=== PATIENT | male | born 1960 | race Caucasian/White ===

== ENCOUNTER 2016-08-23 10:14 | Emergency (ER) | payer OTHER, MEDICAID ==
[2016-08-23 10:17] VITALS: BP 129/88; PULSE 66; RESP 16; TEMP 98.6; O2SAT 92
[2016-08-23] MEDS ORDERED: CLINDAMYCIN 150 MG CAP PO ONE (11:11)
--- NOTE | 2016-08-23 11:15 | EDPHY ---
H & P Stated Complaint: R lower tooth infection Time Seen by Provider: 08/23/16 11:03 HPI/ROS: CHIEF COMPLAINT: Dental pain HISTORY OF PRESENT ILLNESS: Patient is a 56-year-old man with a history of HIV who comes to the emergency department complaining of right lower dental pain. He had his tooth extracted by dental 8 several months ago. He is worried that it is becoming infected at the site. He states that he can taste pus. He has pain in the area. No other trauma. He was seen at urgent care last week and started on unknown antibiotic for bronchitis. He has not had a fever. REVIEW OF SYSTEMS: Constitutional: denies: chills, fever, recent illness, recent injury EENTM: See HPI Respiratory: denies: cough, shortness of breath Cardiac: denies: chest pain, irregular heart rate, lightheadedness, palpitations Gastrointestinal/Abdominal: denies: abdominal pain, diarrhea, nausea, vomiting, blood streaked stools Genitourinary: denies: dysuria, frequency, hematuria, pain Musculoskeletal: denies: joint pain, muscle pain Skin: denies: lesions, rash, jaundice, bruising Neurological: denies: headache, numbness, paresthesia, tingling, dizziness, weakness Hematologic/Lymphatic: denies: blood clots, easy bleeding, easy bruising Immunologic/allergic: denies: HIV/AIDS, transplant EXAM: GENERAL: Well-appearing, well-nourished and in no acute distress. HEAD: Atraumatic, normocephalic. EYES: Pupils equal round and reactive to light, extraocular movements intact, sclera anicteric, conjunctiva are normal. ENT: Poor dentition, right lower tooth extracted with small amount of erythema in the area, no visible swelling or discharge. NECK: Normal range of motion, supple without lymphadenopathy or JVD. LUNGS: Breath sounds clear to auscultation bilaterally and equal. No wheezes rales or rhonchi. HEART: Regular rate and rhythm without murmurs, rubs or gallops. ABDOMEN: Soft, nontender, normoactive bowel sounds. No guarding, no rebound. No masses appreciated. BACK: No CVA tenderness, no spinal tenderness, step-offs or deformities EXTREMITIES: Normal range of motion, no pitting or edema. No clubbing or cyanosis. NEUROLOGICAL: Cranial nerves II through XII grossly intact. Normal speech, normal gait. 5/5 strength, normal movement in all extremities, normal sensation PSYCH: Normal mood, normal affect. SKIN: Warm, dry, normal turgor, no visible rashes or lesions. Source: Patient Exam Limitations: No limitations - Personal History Current Tetanus/Diphtheria Vaccine: Yes Current Tetanus Diphtheria and Acellular Pertussis (TDAP): Yes Tetanus Vaccine Date: WITHIN 10 YRS - Medical/Surgical History Hx Asthma: No Hx Chronic Respiratory Disease: No Hx Diabetes: No Hx Cardiac Disease: Yes Hx Renal Disease: No Hx Cirrhosis: No Hx Alcoholism: Yes Hx HIV/AIDS: Yes Hx Splenectomy or Spleen Trauma: No Other PMH: Chronic abdominal pain, HIV, Hep c+, htn, former alcoholic. psh- yaneth - Family History Significant Family History: No pertinent family hx - Social History Smoking Status: Former smoker Alcohol Use: Sober Drug Use: None Constitutional: Initial Vital Signs Temperature (C) 37.0 C 08/23/16 10:16 Heart Rate 66 08/23/16 10:16 Respiratory Rate 16 08/23/16 10:16 Blood Pressure 129/88 H 08/23/16 10:16 O2 Sat (%) 92 08/23/16 10:16 O2 Delivery Mode Room Air Allergies/Adverse Reactions: No Known Allergies Allergy (Verified 08/20/16 13:09) Home Medications: Medication Instructions Recorded Citalopram Hydrobromide [Celexa] 40 mg PO DAILY 05/27/14 Emtricitabine/Tenofovir [Truvada 1 tab PO DAILY8 05/27/14 200MG/300MG (*)] Mirtazapine [Remeron] 45 mg PO HS 05/27/14 Famotidine [Pepcid] 40 mg PO DAILY #10 tablet 06/05/14 Darunavir Ethanolate [Prezista] 800 mg PO DAILY 01/06/16 Ritonavir [Norvir] 100 mg PO DAILY 01/06/16 Folic Acid [Folic Acid 1 MG (*)] 1 mg PO DAILY #0 tab 01/08/16 Thiamine HCl [Vitamin B-1] 100 mg PO DAILY #0 tab 01/08/16 clonazePAM [klonoPIN (*)] 1 mg PO TID #9 tab 01/08/16 Albuterol Hfa Anes Only [Proair 2 puffs IH Q4 PRN #1 mdi 08/20/16 Hfa Icu (*)] Doxycycline Hyclate 100 mg PO BID #14 tab 08/20/16 Doxycycline Hyclate [Vibramycin 100 mg PO BID #14 cap 08/20/16 100 MG (*)] Guaifenesin/Codeine Phosphate 5 - 10 ml PO Q6 PRN #120 ml 08/20/16 [Guaifenesin-Codeine Liquid] Clindamycin HCl [Clindamycin] 300 mg PO TID #30 cap 08/23/16 Medical Decision Making ED Course/Re-evaluation: The patient has dental pain and history of HIV. He has follow-up scheduled with dental [facility] tomorrow. I will start him on clindamycin. He is not sure of the antibiotic were he was taking for his bronchitis. He is happy with this plan and declines further workup or testing. Differential Diagnosis: Partial list of the Differential diagnosis considered include but were not limited to; dental infection, abscess, dental caries and although unlikely based on the history and physical exam, I also considered fracture parotid duct stone, sepsis, endocarditis. I discussed these differential diagnoses and the plan with the patient as well as the usual and expected course. The patient understands that the diagnosis is provisional and that in medicine we are not always correct and that further workup is often warranted. Usual and customary warnings were given. All of the patient's questions were answered. The patient was instructed to return to the emergency department should the symptoms at all worsen or return, otherwise to followup with the physician as we discussed. - Data Points Medications Given: Discontinued Medications Clindamycin (Clindamycin) 150 mg PO EDNOW ONE PRN Reason: Protocol Stop: 08/23/16 11:12 Last Admin: 08/23/16 11:16 Dose: 150 mg Departure - Departure Disposition: Home, Routine, Self-Care Clinical Impression: Dental infection Condition: Fair Instructions: Dental Abscess (ED) Referrals: NONE *PRIMARY CARE P,. [Primary Care Provider] - As per Instructions [facility] [Outside] - As per Instructions Prescriptions: Clindamycin HCl [Clindamycin] 300 mg PO TID #30 cap
== END 2016-08-23 11:20 | disposition home or self-care (01) ==
DX: K04.7 Periapical abscess without sinus (principal); I10 Essential (primary) hypertension; B20 Human immunodeficiency virus [HIV] disease; Z87.891 Personal history of nicotine dependence

== ENCOUNTER 2016-11-27 07:03 | Emergency (ER) | payer OTHER, MEDICAID ==
[2016-11-27 07:23] VITALS: BP 132/105; PULSE 105; RESP 18; TEMP 98.6; O2SAT 95
[2016-11-27] MEDS ORDERED: NS 1,000 ML IV ONE (07:32)
[2016-11-27] MEDS ORDERED: HALOPERIDOL LACT 5 MG/ML INJ IVP ONE (07:35)
[2016-11-27] MEDS ORDERED: HALOPERIDOL LACT 5 MG/ML INJ ONE (07:38)
--- NOTE | 2016-11-27 07:42 | UCPHY ---
H & P Patient Type: Established Chief Complaint Nursing Narrative: abd pain and nausea for 8 days Time Seen by Provider: 11/27/16 07:14 HPI/ROS: CHIEF COMPLAINT: Abdominal pain History by patient HISTORY OF PRESENT ILLNESS: 56-year-old man with a history of psychiatric disorder, alcohol abuse and HIV with a CD4 count in the thousands presents complaining of diffuse abdominal pain x8 days. This has been associated with nausea and vomiting and diarrhea although he says the diarrhea has resolved and he has not had a bowel movement several days. He has had subjective fever at home. The patient pain is diffuse and not localized. He has a history of prior cholecystectomy. He is not on regular pain medications. He says this is a chronic recurrent problem for him and that he has been told by his nurse that he can go to the ER for any more and he has been told by people at the ER at other hospitals that he should not have any more CAT scans because of the radiation risk. He was last seen for this at [facility] week ago. He denies any urinary symptoms. He drinks alcohol regularly and he says I think a lot but has not had a drink in 5 days. He says he has never been an alcohol withdrawal or had an alcohol related seizure. He is currently denying anxiety, tactile disturbances, and says he has a chronic tremor. He denies a prior history of alcohol withdrawal. He is on disability due to psychiatric and cognitive impairment. REVIEW OF SYSTEMS: As in HPI, and all other systems reviewed and are negative - Personal History Tetanus Vaccine Date: WITHIN 10 YRS - Medical/Surgical History Hx Asthma: No Hx Chronic Respiratory Disease: No Hx Diabetes: No Hx Cardiac Disease: Yes Hx Renal Disease: No Hx Cirrhosis: No Hx Alcoholism: Yes Hx HIV/AIDS: Yes Hx Splenectomy or Spleen Trauma: No Other PMH: Chronic abdominal pain, HIV, Hep c+, htn, former alcoholic. psh- yaneth - Family History Significant Family History: No pertinent family hx - Social History Smoking Status: Former smoker Alcohol Use: Heavy Drug Use: Marijuana - Physical Exam Exam: General Appearance: Alert, disheveled, uncomfortable. Eyes: Pupils equal and round no pallor,mnildly injected. ENT, Mouth: Mucous membranes moist. Respiratory: Normal, effort, There are no retractions, lungs are clear to auscultation. Cardiovascular: Regular rate and rhythm. Gastrointestinal: Abdomen is soft with diffuse mild tenderness, no masses, bowel sounds normal. Neurological: Awake, alert and oriented x 3, no pronator drift, normal gait, no pronator drift, positive tremor Skin: Warm and dry, scattered red plaques and excoriations. Musculoskeletal: Neck is supple nontender. Extremities are symmetrical, full range of motion. Psychiatric: Patient has normal affect, there is no agitation. Constitutional: Initial Vital Signs Temperature (C) 37 C 11/27/16 07:20 Heart Rate 105 H 11/27/16 07:20 Respiratory Rate 18 11/27/16 07:20 Blood Pressure 132/105 H 11/27/16 07:20 O2 Sat (%) 95 11/27/16 07:20 O2 Delivery Mode Room Air Allergies/Adverse Reactions: No Known Allergies Allergy (Verified 08/20/16 13:09) Home Medications: Medication Instructions Recorded Citalopram Hydrobromide [Celexa] 40 mg PO DAILY 05/27/14 Emtricitabine/Tenofovir [Truvada 1 tab PO DAILY8 05/27/14 200MG/300MG (*)] Mirtazapine [Remeron] 45 mg PO HS 05/27/14 Famotidine [Pepcid] 40 mg PO DAILY #10 tablet 06/05/14 Darunavir Ethanolate [Prezista] 800 mg PO DAILY 01/06/16 Ritonavir [Norvir] 100 mg PO DAILY 01/06/16 Folic Acid [Folic Acid 1 MG (*)] 1 mg PO DAILY #0 tab 01/08/16 Thiamine HCl [Vitamin B-1] 100 mg PO DAILY #0 tab 01/08/16 clonazePAM [klonoPIN (*)] 1 mg PO TID #9 tab 01/08/16 Albuterol Hfa Anes Only [Proair 2 puffs IH Q4 PRN #1 mdi 08/20/16 Hfa Icu (*)] Medical Decision Making ED Course/Re-evaluation: Patient with longstanding history of chronic abdominal pain presents with his typical symptoms. Initially he was slightly tachycardic but his exam was otherwise benign. I reviewed the patient's prior ER visits to other hospitals in [place] and has been a longstanding chronic problem for him with similar visits in for which she has a pain management contract at [facility] that requests no narcotics. His CD4 count is in the thousands and thus , opportunistic infections are unlikely. Patient was given IV fluids and IV Haldol with significant improvement in his symptoms and was stating he feels hungry and would like to go home any breakfast. Labs are notable for an elevated white blood cell count which on review of records has been chronically high. Is potassium was slightly low consistent with his history of vomiting and diarrhea. His heart rate improved after fluids and because he was feeling improved and this is a chronic condition for him I did not think any further intervention or workup was necessary. Patient was discharged home in stable and improved condition. - Data Points Laboratory Results: Laboratory Results 11/27/16 07:40 11/27/16 07:40 11/27/16 11/27/16 07:40 07:40 WBC 13.99 10^3/uL H 10^3/uL (3.80-9.50) RBC 4.39 10^6/uL L 10^6/uL (4.40-6.38) Hgb 15.8 g/dL g/dL (13.7-17.5) Hct 42.7 % % (40.0-51.0) MCV 97.3 fL fL (81.5-99.8) MCH 36.0 pg H pg (27.9-34.1) MCHC 37.0 g/dL H g/dL (32.4-36.7) RDW 12.1 % % (11.5-15.2) Plt Count 250 10^3/uL 10^3/uL (150-400) MPV 9.3 fL fL (8.7-11.7) Neut % (Auto) 70.0 % % (39.3-74.2) Lymph % (Auto) 20.4 % % (15.0-45.0) Lamar % (Auto) 8.4 % % (4.5-13.0) Eos % (Auto) 0.4 % L % (0.6-7.6) Baso % (Auto) 0.4 % % (0.3-1.7) Nucleat RBC Rel Count 0.0 % % (0.0-0.2) Absolute Neuts (auto) 9.80 10^3/uL H 10^3/uL (1.70-6.50) Absolute Lymphs (auto) 2.85 10^3/uL 10^3/uL (1.00-3.00) Absolute Monos (auto) 1.17 10^3/uL H 10^3/uL (0.30-0.80) Absolute Eos (auto) 0.05 10^3/uL 10^3/uL (0.03-0.40) Absolute Basos (auto) 0.06 10^3/uL 10^3/uL (0.02-0.10) Absolute Nucleated RBC 0.00 10^3/uL 10^3/uL (0-0.01) Immature Gran % 0.4 % % (0.0-1.1) Immature Gran # 0.06 10^3/uL 10^3/uL (0.00-0.10) Sodium 140 mEq/L mEq/L (134-144) Potassium 3.4 mEq/L L mEq/L (3.5-5.2) Chloride 106 mEq/L mEq/L (97-110) Carbon Dioxide 21 mEq/l L mEq/l (22-31) Anion Gap 13 mEq/L mEq/L (8-16) BUN 20 mg/dL mg/dL (7-23) Creatinine 0.9 mg/dL mg/dL (0.7-1.3) Estimated GFR > 60 Glucose 106 mg/dL H mg/dL (70-100) Calcium 9.5 mg/dL mg/dL (8.5-10.4) Total Bilirubin 1.0 mg/dL mg/dL (0.1-1.4) Conjugated Bilirubin 0.4 mg/dL mg/dL (0.0-0.5) Unconjugated Bilirubin 0.6 mg/dL mg/dL (0.0-1.1) AST 39 IU/L IU/L (17-59) ALT 62 IU/L IU/L (21-72) Alkaline Phosphatase 79 IU/L IU/L (38-126) Total Protein 7.2 g/dL g/dL (6.3-8.2) Albumin 4.0 g/dL g/dL (3.5-5.0) Lipase 46.0 IU/L IU/L (23-300) Medications Given: Discontinued Medications Haloperidol Lactate (Haldol Injection) 2.5 mg IVP EDNOW ONE Stop: 11/27/16 07:36 Last Admin: 11/27/16 07:44 Dose: 2.5 mg Sodium Chloride (Ns) 1,000 mls @ 0 mls/hr IV ONCE ONE PRN Reason: Wide Open Stop: 11/27/16 07:33 Last Admin: 11/27/16 07:44 Dose: 1,000 mls Departure - Departure Disposition: Home, Routine, Self-Care Clinical Impression: Chronic abdominal pain Condition: Fair Instructions: Chronic Abdominal Pain (ED) Referrals: Etienne Yang MD [Primary Care Provider] - As per Instructions - PQRS PQRS Measurement: N/A
[2016-11-27 07:50] LABS: % IMMATURE GRANULYOCYTES 0.4 % (0.0-1.1); ABSOLUTE IMMATURE GRANULOCYTES 0.06 10^3/uL (0.00-0.10); ADD DIFF? NO; ADD MORPH? NO; ADD SCAN? NO; ATYPICAL LYMPHOCYTE FLAG 0 (0-99); FRAGMENT RBC FLAG 0 (0-99); HEMATOCRIT 42.7 % (40.0-51.0); HEMOGLOBIN 15.8 g/dL (13.7-17.5); LEFT SHIFT FLG 0 (0-99); LIPEMIA HEMOLYSIS FLAG 90 (0-99); MEAN CELL VOLUME 97.3 fL (81.5-99.8); MEAN PLATELET VOLUME 9.3 fL (8.7-11.7); PLATELET CLUMPS FLAG 0 (0-99); PLATELET COUNT 250 10^3/uL (150-400); RED BLOOD CELL COUNT 4.39 10^6/uL (4.40-6.38); RED CELL DISTRIBUTION WIDTH 12.1 % (11.5-15.2)
[2016-11-27 08:10] LABS: ALANINE AMINOTRANSFERASE 62 IU/L (21-72); ALKALINE PHOSPHATASE 79 IU/L (38-126); ANION GAP 13 mEq/L (8-16); ASPARTATE AMINOTRANSFERASE 39 IU/L (17-59); BILIRUBIN-CONJUGATED 0.4 mg/dL (0.0-0.5); BILIRUBIN-UNCONJUGATED 0.6 mg/dL (0.0-1.1); CALCIUM 9.5 mg/dL (8.5-10.4); CARBON DIOXIDE 21 mEq/l (22-31); CHLORIDE 106 mEq/L (97-110); CREATININE 0.9 mg/dL (0.7-1.3); GLOMERULAR FILTRATION RATE > 60; GLUCOSE 106 mg/dL (70-100); POTASSIUM 3.4 mEq/L (3.5-5.2); SODIUM 140 mEq/L (134-144); TOTAL PROTEIN 7.2 g/dL (6.3-8.2)
== END 2016-11-27 08:21 | disposition home or self-care (01) ==
LOC: CED 07:03
DX: R10.9 Unspecified abdominal pain (principal); R11.2 Nausea with vomiting, unspecified; F99 Mental disorder, not otherwise specified; B20 Human immunodeficiency virus [HIV] disease; B19.20 Unspecified viral hepatitis C without hepatic coma; F12.90 Cannabis use, unspecified, uncomplicated; F10.21 Alcohol dependence, in remission; Z87.891 Personal history of nicotine dependence
CPT/HCPCS: 96361; 96374; G0463; 80048-PO; 80076-PO; 83690-PO; 85025-PO; 99215-PO

== ENCOUNTER 2017-04-07 08:03 | Emergency (ER) | payer OTHER, MEDICAID ==
[2017-04-07] MEDS ORDERED: NS 1,000 ML IV ONE ×2 (08:20→08:56)
[2017-04-07] MEDS ORDERED: ONDANSETRON 4 MG/2 ML VIAL IVP ONE (08:20)
--- NOTE | 2017-04-07 08:20 | EDPHY ---
H & P Time Seen by Provider: 04/07/17 08:14 HPI/ROS: Abdominal Pain Chief complaint. Abdominal pain HPI. 57-year-old male presents emergency department with 3 day history of generalized abdominal pain. He describes as burning in generalized. Some radiation to the back. He has had nausea and vomiting and decreased oral intake for the past 4 days. Subjective fever. No change with movement to his abdomen. He denies urinary symptoms. Similar symptoms previously. He has been drinking alcohol on as recently as last night. No previous abdominal surgery. Some cough but denies chest discomfort or trouble breathing ROS Constitutional. Subjective fever Eyes. no problems with vision ENT. no sore throat, no nasal drainage Cardiovascular. no chest pain Respiratory. no shortness of breath, no cough Abdominal. Abdominal pain with nausea vomiting . no problems urinating MS. no calf pain/swelling, no neck/back pain, no joint pain Skin. no rash Lymph. no swollen glands Neuro. no headache, no dizziness, no difficulty walking or with speech Past Medical/Surgical History: Past medical history significant for psychiatric disorder, alcoholism, HIV, hepatitis-C, hypertension Last CD4 count 1157 per patient Social History: Single, nonsmoker, recent alcohol Smoking Status: Former smoker Physical Exam: General Appearance: Alert well-developed male moderate distress vital signs significant for heart rate 115 and blood pressure 154/129 Eyes: Pupils equal and round no pallor or injection. ENT, Mouth: Mucous membranes are moist. Respiratory: There are no retractions, lungs are clear to auscultation. Cardiovascular: Regular rate and rhythm. Gastrointestinal: Abdomen is soft and diffusely tender. Normal bowel sounds. No masses Neurological: Awake and alert, sensory and motor exams grossly normal. Skin: Warm and dry, no rashes. Musculoskeletal: Neck is supple nontender. Extremities symmetrical, full range of motion. Psychiatric: Patient is oriented X 3, there is no agitation. Constitutional: Initial Vital Signs Temperature (C) 37.4 C 04/07/17 08:12 Heart Rate 115 H 04/07/17 08:12 Respiratory Rate 20 04/07/17 08:12 Blood Pressure 154/129 H 04/07/17 08:12 O2 Sat (%) 94 04/07/17 08:12 O2 Delivery Mode Room Air O2 (L/minute) 2 Allergies/Adverse Reactions: No Known Allergies Allergy (Verified 04/07/17 08:12) Home Medications: Medication Instructions Recorded Citalopram Hydrobromide [Celexa] 40 mg PO DAILY 05/27/14 Emtricitabine/Tenofovir [Truvada 1 tab PO DAILY8 05/27/14 200MG/300MG (*)] Mirtazapine [Remeron] 45 mg PO HS 05/27/14 Famotidine [Pepcid] 40 mg PO DAILY #10 tablet 06/05/14 Darunavir Ethanolate [Prezista] 800 mg PO DAILY 01/06/16 Ritonavir [Norvir] 100 mg PO DAILY 01/06/16 Folic Acid [Folic Acid 1 MG (*)] 1 mg PO DAILY #0 tab 01/08/16 Thiamine HCl [Vitamin B-1] 100 mg PO DAILY #0 tab 01/08/16 clonazePAM [klonoPIN (*)] 1 mg PO TID #9 tab 01/08/16 Albuterol Hfa Anes Only [Proair 2 puffs IH Q4 PRN #1 mdi 08/20/16 Hfa Icu (*)] Medical Decision Making Procedures: IV normal saline. Zofran initially for nausea and vomiting. Ativan 1 mg IV. Fentanyl 100 mcg IV ED Course/Re-evaluation: Re-evaluation 8:50 a.m.. Patient is better but continues to complain of pain. He will be given some IV fentanyl Re-evaluation at 9:40 a.m.. Patient stable. He tells me he has no abdominal pain. He is drinking juice and eating crackers. Patient and I discussed laboratory evaluation, treatment plan including criteria for return and importance of follow-up and further evaluation. He expresses understanding and agreement Re-evaluation again at 9:54 a.m.. Patient has no symptoms. He feels well to go home Differential Diagnosis: Symptoms are likely due to alcohol consumption and not eating much food over the last several days. He has mild dehydration. I considered pancreatitis, peptic ulcer disease, gastritis. - Data Points Laboratory Results: Laboratory Results 04/07/17 08:28 04/07/17 08:28 04/07/17 04/07/17 08:28 08:28 WBC 19.92 10^3/uL H 10^3/uL (3.80-9.50) RBC 4.52 10^6/uL 10^6/uL (4.40-6.38) Hgb 16.1 g/dL g/dL (13.7-17.5) Hct 44.8 % % (40.0-51.0) MCV 99.1 fL D fL (81.5-99.8) MCH 35.6 pg H pg (27.9-34.1) MCHC 35.9 g/dL g/dL (32.4-36.7) RDW 12.7 % % (11.5-15.2) Plt Count 249 10^3/uL 10^3/uL (150-400) MPV 9.1 fL fL (8.7-11.7) Neut % (Auto) 74.3 % H % (39.3-74.2) Lymph % (Auto) 17.2 % % (15.0-45.0) [place] % (Auto) 7.2 % % (4.5-13.0) Eos % (Auto) 0.2 % L % (0.6-7.6) Baso % (Auto) 0.4 % % (0.3-1.7) Nucleat RBC Rel Count 0.0 % % (0.0-0.2) Absolute Neuts (auto) 14.82 10^3/uL H 10^3/uL (1.70-6.50) Absolute Lymphs (auto) 3.42 10^3/uL H 10^3/uL (1.00-3.00) Absolute Monos (auto) 1.44 10^3/uL H 10^3/uL (0.30-0.80) Absolute Eos (auto) 0.03 10^3/uL 10^3/uL (0.03-0.40) Absolute Basos (auto) 0.07 10^3/uL 10^3/uL (0.02-0.10) Absolute Nucleated RBC 0.00 10^3/uL 10^3/uL (0-0.01) Immature Gran % 0.7 % % (0.0-1.1) Immature Gran # 0.14 10^3/uL H 10^3/uL (0.00-0.10) Sodium 143 mEq/L mEq/L (134-144) Potassium 4.3 mEq/L mEq/L (3.5-5.2) Chloride 108 mEq/L mEq/L (97-110) Carbon Dioxide 19 mEq/l L mEq/l (22-31) Anion Gap 16 mEq/L mEq/L (8-16) BUN 29 mg/dL H mg/dL (7-23) Creatinine 1.4 mg/dL H mg/dL (0.7-1.3) Estimated GFR 52 Glucose 129 mg/dL H mg/dL (70-100) Calcium 9.5 mg/dL mg/dL (8.5-10.4) Lipase 48 IU/L IU/L (23-300) Medications Given: Discontinued Medications Fentanyl (Sublimaze) 100 mcg IVP EDNOW ONE Stop: 04/07/17 08:57 Last Admin: 04/07/17 09:05 Dose: 100 mcg Sodium Chloride (Ns) 1,000 mls @ 0 mls/hr IV EDNOW ONE; Wide Open PRN Reason: Protocol Stop: 04/07/17 08:21 Last Admin: 04/07/17 08:30 Dose: 1,000 mls Sodium Chloride (Ns) 1,000 mls @ 0 mls/hr IV EDNOW ONE; Wide Open PRN Reason: Protocol Stop: 04/07/17 08:57 Last Admin: 04/07/17 09:10 Dose: 1,000 mls Lorazepam (Ativan Injection) 1 mg IVP EDNOW ONE Stop: 04/07/17 08:36 Last Admin: 04/07/17 08:42 Dose: 1 mg Ondansetron HCl (Zofran) 4 mg IVP EDNOW ONE Stop: 04/07/17 08:21 Last Admin: 04/07/17 08:30 Dose: 4 mg Departure - Departure Disposition: Home, Routine, Self-Care Clinical Impression: Abdominal pain Qualifiers: Abdominal location: generalized Qualified Code(s): R10.84 - Generalized abdominal pain Condition: Good Instructions: Abdominal Pain (ED) Additional Instructions: Frequent, small sips fluids well nauseated. Gradual diet advancement. Avoid further alcohol consumption. Return for worsening pain, fever, vomiting. Recheck in 1 day if not continuing to improve Referrals: Mari Pritchett MD [Primary Care Provider] - 1 day, if not improved
[2017-04-07 08:31] LABS: % IMMATURE GRANULYOCYTES 0.7 % (0.0-1.1); ABSOLUTE IMMATURE GRANULOCYTES 0.14 10^3/uL (0.00-0.10); ADD DIFF? NO; ADD MORPH? NO; ADD SCAN? NO; ATYPICAL LYMPHOCYTE FLAG 0 (0-99); FRAGMENT RBC FLAG 0 (0-99); HEMATOCRIT 44.8 % (40.0-51.0); HEMOGLOBIN 16.1 g/dL (13.7-17.5); LEFT SHIFT FLG 0 (0-99); LIPEMIA HEMOLYSIS FLAG 90 (0-99); MEAN CELL HEMOGLOBIN 35.6 pg (27.9-34.1); MEAN CELL HEMOGLOBIN CONCENTR. 35.9 g/dL (32.4-36.7); MEAN CELL VOLUME 99.1 fL (81.5-99.8); MEAN PLATELET VOLUME 9.1 fL (8.7-11.7); PLATELET CLUMPS FLAG 0 (0-99); PLATELET COUNT 249 10^3/uL (150-400); RED BLOOD CELL COUNT 4.52 10^6/uL (4.40-6.38); RED CELL DISTRIBUTION WIDTH 12.7 % (11.5-15.2)
[2017-04-07] MEDS ORDERED: LORazepam 2 MG/ML INJ IVP ONE (08:35)
[2017-04-07 08:53] LABS: CALCIUM 9.5 mg/dL (8.5-10.4); CREATININE 1.4 mg/dL (0.7-1.3); POTASSIUM 4.3 mEq/L (3.5-5.2)
[2017-04-07] MEDS ORDERED: fentaNYL 100 MCG/2 ML INJ IVP ONE (08:56)
[2017-04-07 10:08] VITALS: BP 110/67; PULSE 79; RESP 18; TEMP 98.6; O2SAT 94
== END 2017-04-07 10:08 | disposition home or self-care (01) ==
LOC: CED 08:03
DX: R10.84 Generalized abdominal pain (principal); B20 Human immunodeficiency virus [HIV] disease; I10 Essential (primary) hypertension; E86.9 Volume depletion, unspecified; Z87.891 Personal history of nicotine dependence
CPT/HCPCS: 96361; 96374; 96375; 99284; J2060; J2405; J3010; 80048-PO; 83690-PO; 85025-PO

== ENCOUNTER 2017-04-26 09:38 | Emergency (ER) | payer OTHER, MEDICAID ==
[2017-04-26 10:01] VITALS: RESP 18
[2017-04-26] MEDS ORDERED: ONDANSETRON 4 MG/2 ML VIAL IVP ONE (10:01)
[2017-04-26] MEDS ORDERED: NS 1,000 ML IV ONE (10:01)
[2017-04-26] MEDS ORDERED: fentaNYL 100 MCG/2 ML INJ IVP ONE (10:02)
[2017-04-26 10:12] LABS: % IMMATURE GRANULYOCYTES 0.7 % (0.0-1.1); ABSOLUTE IMMATURE GRANULOCYTES 0.13 10^3/uL (0.00-0.10); ADD DIFF? NO; ADD MORPH? NO; ADD SCAN? NO; ATYPICAL LYMPHOCYTE FLAG 0 (0-99); FRAGMENT RBC FLAG 0 (0-99); HEMATOCRIT 45.6 % (40.0-51.0); HEMOGLOBIN 16.3 g/dL (13.7-17.5); LEFT SHIFT FLG 0 (0-99); LIPEMIA HEMOLYSIS FLAG 90 (0-99); MEAN CELL HEMOGLOBIN 35.6 pg (27.9-34.1); MEAN CELL HEMOGLOBIN CONCENTR. 35.7 g/dL (32.4-36.7); MEAN CELL VOLUME 99.6 fL (81.5-99.8); MEAN PLATELET VOLUME 9.3 fL (8.7-11.7); PLATELET CLUMPS FLAG 10 (0-99); PLATELET COUNT 352 10^3/uL (150-400); RED BLOOD CELL COUNT 4.58 10^6/uL (4.40-6.38); RED CELL DISTRIBUTION WIDTH 12.8 % (11.5-15.2)
--- NOTE | 2017-04-26 10:14 | EDPHY ---
H & P Time Seen by Provider: 04/26/17 09:58 HPI/ROS: CHIEF COMPLAINT: Abdominal pain, vomiting HISTORY OF PRESENT ILLNESS: 57-year-old male with alcoholism and HIV positive presents with recurrent abdominal pain and vomiting. Onset of generalized abdominal pain yesterday, associated with multiple episodes of vomiting and subjective fever. The abdominal pain is constant, without alleviating or aggravating factors. History of multiple prior similar episodes. He was last seen on 04/07/2017 for similar symptoms, given Zofran and fentanyl with complete relief in symptoms. He quit drinking alcohol after that visit. He was asymptomatic until yesterday. Last CD4 count was approximately 1200; no prior opportunistic infections. REVIEW OF SYSTEMS: Constitutional: no chills Eyes: No visual changes ENT: No sore throat Respiratory: No cough, no shortness of breath Cardiac: No chest pain Genitourinary: No hematuria, no dysuria Musculoskeletal: No leg pain or swelling Skin: No rash Neurological: No headache, no numbness, no weakness Psychiatric: depression Past Medical/Surgical History: Alcoholism HIV positive Hepatitis-C Cholecystectomy Social History: Smokes marijuana 3 times daily Denies recent alcohol Smoking Status: Former smoker Physical Exam: General Appearance: Alert, appears uncomfortable Eyes: Pupils equal and round, no conjunctival pallor or injection ENT, Mouth: Mucous membranes moist Neck: Normal inspection Respiratory: Lungs are clear to auscultation Cardiovascular: Regular rate and rhythm Gastrointestinal: Abdomen is soft, diffuse tenderness, does not appear in pain with palpation, normal bowel sounds Neurological: A&O, nonfocal, normal gait Skin: Warm and dry, no rash Extremities: Nontender, no pedal edema Psychiatric: Mood and affect normal Constitutional: Initial Vital Signs Temperature (C) 37.2 C 04/26/17 09:58 Heart Rate 78 04/26/17 09:58 Respiratory Rate 18 04/26/17 09:58 Blood Pressure 150/99 H 04/26/17 09:58 O2 Sat (%) 94 04/26/17 09:58 O2 Delivery Mode Room Air Allergies/Adverse Reactions: No Known Allergies Allergy (Verified 04/07/17 08:12) Home Medications: Medication Instructions Recorded Citalopram Hydrobromide [Celexa] 40 mg PO DAILY 05/27/14 Emtricitabine/Tenofovir [Truvada 1 tab PO DAILY8 05/27/14 200MG/300MG (*)] Mirtazapine [Remeron] 45 mg PO HS 05/27/14 Famotidine [Pepcid] 40 mg PO DAILY #10 tablet 06/05/14 Darunavir Ethanolate [Prezista] 800 mg PO DAILY 01/06/16 Ritonavir [Norvir] 100 mg PO DAILY 01/06/16 Folic Acid [Folic Acid 1 MG (*)] 1 mg PO DAILY #0 tab 01/08/16 Thiamine HCl [Vitamin B-1] 100 mg PO DAILY #0 tab 01/08/16 clonazePAM [klonoPIN (*)] 1 mg PO TID #9 tab 01/08/16 Albuterol Hfa Anes Only [Proair 2 puffs IH Q4 PRN #1 mdi 08/20/16 Hfa Icu (*)] Ondansetron Odt [Zofran Odt 4 mg 4 mg PO Q4 PRN #6 tab 04/26/17 (*)] Medical Decision Making ED Course/Re-evaluation: This patient presents with recurrent abdominal pain and vomiting. Old medical records were reviewed; last admission for similar symptoms was in November 2015. The patient declines CT scan and states that his symptoms usually resolve with IV fluids, Zofran and pain medicine. 11:00 a.m.-the patient feels much better. Nausea and pain have resolved. Abdomen is soft and nontender. He is a daily marijuana user and understands that his recurrent abdominal pain and vomiting may be secondary to cyclic vomiting syndrome. Leukocytosis was noted and discussed with the patient. I reviewed his past white blood cell counts and he usually has leukocytosis. 11:30am--continues to feel much better; no abd pain or nausea. Tolerated oral fluids well. Abd soft, NT. Wants to go home. Abd pain precautions given. Differential Diagnosis: Differential diagnosis includes though it is not limited to appendicitis, cholecystitis, diverticulitis, pyelonephritis, bowel perforation, small bowel obstruction. - Data Points Laboratory Results: Laboratory Results 04/26/17 10:04 04/26/17 10:04 04/26/17 04/26/17 04/26/17 10:04 10:04 10:04 WBC 19.85 10^3/uL H 10^3/uL (3.80-9.50) RBC 4.58 10^6/uL 10^6/uL (4.40-6.38) Hgb 16.3 g/dL g/dL (13.7-17.5) Hct 45.6 % % (40.0-51.0) MCV 99.6 fL fL (81.5-99.8) MCH 35.6 pg H pg (27.9-34.1) MCHC 35.7 g/dL g/dL (32.4-36.7) RDW 12.8 % % (11.5-15.2) Plt Count 352 10^3/uL 10^3/uL (150-400) MPV 9.3 fL fL (8.7-11.7) Neut % (Auto) 75.0 % H % (39.3-74.2) Lymph % (Auto) 17.9 % % (15.0-45.0) [place] % (Auto) 5.8 % % (4.5-13.0) Eos % (Auto) 0.2 % L % (0.6-7.6) Baso % (Auto) 0.4 % % (0.3-1.7) Nucleat RBC Rel Count 0.0 % % (0.0-0.2) Absolute Neuts (auto) 14.90 10^3/uL H 10^3/uL (1.70-6.50) Absolute Lymphs (auto) 3.55 10^3/uL H 10^3/uL (1.00-3.00) Absolute Monos (auto) 1.16 10^3/uL H 10^3/uL (0.30-0.80) Absolute Eos (auto) 0.03 10^3/uL 10^3/uL (0.03-0.40) Absolute Basos (auto) 0.08 10^3/uL 10^3/uL (0.02-0.10) Absolute Nucleated RBC 0.00 10^3/uL 10^3/uL (0-0.01) Immature Gran % 0.7 % % (0.0-1.1) Immature Gran # 0.13 10^3/uL H 10^3/uL (0.00-0.10) Sodium 142 mEq/L mEq/L (134-144) Potassium 4.4 mEq/L mEq/L (3.5-5.2) Chloride 107 mEq/L mEq/L (97-110) Carbon Dioxide 21 mEq/l L mEq/l (22-31) Anion Gap 14 mEq/L mEq/L (8-16) BUN 24 mg/dL H mg/dL (7-23) Creatinine 1.3 mg/dL mg/dL (0.7-1.3) Estimated GFR 57 Glucose 165 mg/dL H mg/dL (70-100) Calcium 10.0 mg/dL mg/dL (8.5-10.4) Total Bilirubin 0.9 mg/dL mg/dL (0.1-1.4) Conjugated Bilirubin 0.5 mg/dL mg/dL (0.0-0.5) Unconjugated Bilirubin 0.4 mg/dL mg/dL (0.0-1.1) AST 28 IU/L IU/L (17-59) ALT 46 IU/L IU/L (21-72) Alkaline Phosphatase 81 IU/L IU/L (38-126) Total Protein 8.1 g/dL g/dL (6.3-8.2) Albumin 4.8 g/dL g/dL (3.5-5.0) Lipase 69 IU/L IU/L (23-300) Ethyl Alcohol Pending Medications Given: Discontinued Medications Fentanyl (Sublimaze) 100 mcg IVP EDNOW ONE Stop: 04/26/17 10:03 Last Admin: 04/26/17 10:11 Dose: 100 mcg Sodium Chloride (Ns) 1,000 mls @ 0 mls/hr IV ONCE ONE PRN Reason: Wide Open Stop: 04/26/17 10:02 Last Admin: 04/26/17 10:07 Dose: 1,000 mls Ondansetron HCl (Zofran) 4 mg IVP EDNOW ONE Stop: 04/26/17 10:02 Last Admin: 04/26/17 10:07 Dose: 4 mg Departure - Departure Disposition: Home, Routine, Self-Care Clinical Impression: Abdominal pain Qualifiers: Abdominal location: generalized Qualified Code(s): R10.84 - Generalized abdominal pain Instructions: Acute Nausea and Vomiting (ED), Abdominal Pain (ED) Additional Instructions: Clear fluids for 24 hours. Return for worsening symptoms or any concerns. Referrals: Etienne Yang MD [Primary Care Provider] - 1-2 days without fail Prescriptions: Ondansetron Odt [Zofran Odt 4 mg (*)] 4 mg PO Q4 PRN #6 tab PRN Reason: Nausea
[2017-04-26 10:28] LABS: ALBUMIN 4.8 g/dL (3.5-5.0); BILIRUBIN,TOTAL 0.9 mg/dL (0.1-1.4); BILIRUBIN-CONJUGATED 0.5 mg/dL (0.0-0.5); BILIRUBIN-UNCONJUGATED 0.4 mg/dL (0.0-1.1); CREATININE 1.3 mg/dL (0.7-1.3); POTASSIUM 4.4 mEq/L (3.5-5.2); TOTAL PROTEIN 8.1 g/dL (6.3-8.2)
[2017-04-26 10:50] VITALS: TEMP 98
[2017-04-26 11:53] VITALS: BP 137/62; PULSE 95; O2SAT 91
[2017-04-26 12:08] LABS: ETHANOL SERUM < 10 mg/dL (0-10)
== END 2017-04-26 11:52 | disposition home or self-care (01) ==
LOC: CED 09:38
DX: R10.84 Generalized abdominal pain (principal); Z87.891 Personal history of nicotine dependence; Z90.49 Acquired absence of other specified parts of digestive tract
CPT/HCPCS: 96361; 96374; 99284; J3010; 80048-PO; 80076-PO; 83690-PO; 85025-PO; G0480

== ENCOUNTER 2017-08-06 07:16 | Observation (INO) | payer OTHER, MEDICAID ==
[2017-08-06] MEDS ORDERED: HYDROmorphONE/DILAUDID 1 MG/ML INJ IVP ONE (07:40)
[2017-08-06] MEDS ORDERED: NS 1,000 ML IV ONE ×2 (07:40→08:22)
[2017-08-06] MEDS ORDERED: ONDANSETRON 4 MG/2 ML VIAL IVP ONE (07:41)
--- NOTE | 2017-08-06 07:50 | EDPHY ---
H & P Stated Complaint: abd. pain x 3 days, with rectal bleeding Time Seen by Provider: 08/06/17 07:25 HPI/ROS: CHIEF COMPLAINT: Abdominal pain, rectal bleeding HISTORY OF PRESENT ILLNESS: This is a 57-year-old male with a history of alcoholism, hepatitis-C, HIV, hypertension who is been seen in the emergency department on a number of occasions with abdominal pain, and vomiting, thought possibly to be related to cannabis use. He presents today reporting 3 days of abdominal pain with vomiting. He noted blood mixed in his stool and blood on the toilet paper this morning. No prior history of rectal bleeding associated with his abdominal pain and vomiting. Denies any rectal pain, hemorrhoids, or prior episodes of bleeding. Patient denies a history of reflux or GERD. Patient also reports about a month of achy chest discomfort. Cannot identify any specific exacerbating or relieving factors. Denies palpitations, lightheadedness, dizziness, fainting. He does have a history of hypertension but no history of diabetes, coronary artery disease, family history of coronary artery disease, and is not a cigarette smoker. Patient reports burning with urination. No hematuria. Last drink 3 days ago. No fever, chills, shortness of breath, palpitations, urinary complaints, headache, lightheadedness. REVIEW OF SYSTEMS: Aside from elements discussed in the HPI, a comprehensive 10-point review of systems was reviewed and is negative. PAST MEDICAL HISTORY: Hypertension, HIV positive, no AIDS defining illnesses per the patient's report, hepatitis-C, alcoholism. SOCIAL HISTORY: Heavy cannabis use, nonsmoker, alcoholic. VITAL SIGNS Reviewed by me. Mildly tachypneic. O2 sats intermittently noted to be 88 %. Hypertensive. GENERAL: Slightly disheveled, uncomfortable, writhing on the bed complaining of abdominal pain. No respiratory distress HEENT: Atraumatic. Eyes: No icterus, no injection. Mouth: Dry mucous membranes. No erythema or lesions. Neck: supple with no adenopathy. LUNGS: Diffuse wheezes throughout, no rhonchi or rales. CARDIAC: Distant heart sounds, regular, no murmur auscultated. ABDOMEN: Soft, diffuse tenderness. No guarding or rebound. RECTAL: External hemorrhoid present, not thrombosed, not tender, not bleeding. Yellow loose stool on the glove. No visible blood or melena. BACK: No CVA tenderness. EXTREMITIES: No trauma. No edema. Range of motion is normal throughout. NEURO: Alert and oriented, grossly nonfocal. SKIN: Warm and dry, psoriatic rash on arms, legs, chest, abdomen. PSYCHIATRIC: Normal mentation, no agitation. - Personal History Tetanus Vaccine Date: WITHIN 10 YRS - Medical/Surgical History Hx Asthma: No Hx Chronic Respiratory Disease: No Hx Diabetes: No Hx Cardiac Disease: Yes Hx Renal Disease: No Hx Cirrhosis: No Hx Alcoholism: Yes Hx HIV/AIDS: Yes Hx Splenectomy or Spleen Trauma: No Other PMH: Chronic abdominal pain, HIV, Hep c+, htn, former alcoholic. psh- yaneth - Social History Smoking Status: Former smoker Constitutional: Initial Vital Signs Temperature (C) 37.2 C 08/06/17 07:22 Heart Rate 78 08/06/17 07:22 Respiratory Rate 22 H 08/06/17 07:22 Blood Pressure 164/124 H 08/06/17 07:22 O2 Sat (%) 94 08/06/17 07:22 O2 Delivery Mode Room Air O2 (L/minute) 3 Allergies/Adverse Reactions: No Known Allergies Allergy (Verified 08/06/17 07:20) Home Medications: Medication Instructions Recorded Citalopram Hydrobromide [Celexa] 40 mg PO DAILY 05/27/14 Emtricitabine/Tenofovir [Truvada 1 tab PO DAILY8 05/27/14 200MG/300MG (*)] Mirtazapine [Remeron] 45 mg PO HS 05/27/14 Famotidine [Pepcid] 40 mg PO DAILY #10 tablet 06/05/14 Darunavir Ethanolate [Prezista] 800 mg PO DAILY 01/06/16 Ritonavir [Norvir] 100 mg PO DAILY 01/06/16 Folic Acid [Folic Acid 1 MG (*)] 1 mg PO DAILY #0 tab 01/08/16 Thiamine HCl [Vitamin B-1] 100 mg PO DAILY #0 tab 01/08/16 clonazePAM [klonoPIN (*)] 1 mg PO TID #9 tab 01/08/16 Albuterol Hfa Anes Only [Proair 2 puffs IH Q4 PRN #1 mdi 08/20/16 Hfa Icu (*)] Ondansetron Odt [Zofran Odt 4 mg 4 mg PO Q4 PRN #6 tab 04/26/17 (*)] Atenolol [Tenormin 100 mg (*)] 100 mg PO DAILY 08/06/17 Atorvastatin Calcium [Lipitor 20 20 mg PO DAILY 08/06/17 mg (*)] Lisinopril [Zestril 10 mg (*)] 10 mg PO DAILY 08/06/17 Naproxen [Naprosyn] 500 mg PO BID 08/06/17 Pantoprazole Sodium [Protonix 40mg 40 mg PO DAILY 08/06/17 (*)] Medical Decision Making - Diagnostics EKG Interpretation: 12-LEAD EKG: Please see the full report in [facility]. My interpretation: Sinus rhythm, baseline artifact. Imaging Results: Imaging Impressions Chest X-Ray 08/06/17 07:40 Impression: No acute findings in the chest. ED Course/Re-evaluation: Patient had IV placed and receives normal saline as well as Dilaudid and Zofran. He received an albuterol nebulizer for his wheezing. Following the neb treatment the patient was noted to become quite hypoxic. 84% on room air. On re-examination he remains persistently wheezy. DuoNeb was administered. Patient was placed on O2. O2 sats are 88% on 2 L. Patient was increased to 3 L. Chest x-ray demonstrates no infiltrate. Patient's initial blood pressure was quite elevated. At that point he was in significant discomfort. After receiving pain meds, fluids, anti emetics patient is noted to have a blood pressure between 80 and 90 systolic. 2nd L of NS fluid was hung. Further treatment in the emergency department included albuterol nebulizer as well as the 2nd L of normal saline. Patient continues to be hypoxic on room air is requiring 3 L by nasal cannula to keep saturations greater than 90%. CT scan the abdomen pelvis was obtained and is unremarkable. Patient's blood pressures intermittently the 90 systolic. Lactic acid was drawn and is pending at this time. Of note the patient has not had fevers or chills by history. Patient's course was discussed with the hospitalist service. Patient will be admitted to Dr. Bob Cortez as accepting physician. Lactic acid is 0.7. Differential Diagnosis: After obtaining the patient's history and performing an examination, differential diagnosis for the patient's primary complaint of abdominal pain or rectal bleeding was considered included but was not limited to gastritis, varices, upper GI bleeding, lower GI bleeding, colitis, gastroenteritis, pancreatitis, rectal bleeding. Differential diagnosis for the patient's chest pain hypoxemia was considered including but not limited to pulmonary infectious processes, influenza, viral syndrome, bronchitis, pulmonary emboli, pulmonary edema, congestive heart failure, and cardiac causes. Consult/Admit Bed Type: Dr. Sanjay Rojas, [facility] - Data Points Laboratory Results: Laboratory Results 08/06/17 07:43 08/06/17 07:43 08/06/17 08/06/17 08/06/17 08:42 07:43 07:43 WBC RBC Hgb Hct MCV MCH MCHC RDW Plt Count MPV Neut % (Auto) Lymph % (Auto) [place] % (Auto) Eos % (Auto) Baso % (Auto) Nucleat RBC Rel Count Absolute Neuts (auto) Absolute Lymphs (auto) Absolute Monos (auto) Absolute Eos (auto) Absolute Basos (auto) Absolute Nucleated RBC Immature Gran % Immature Gran # Sodium 147 mEq/L H mEq/L (134-144) Potassium 4.1 mEq/L mEq/L (3.5-5.2) Chloride 110 mEq/L mEq/L (97-110) Carbon Dioxide 21 mEq/l L mEq/l (22-31) Anion Gap 16 mEq/L mEq/L (8-16) BUN 28 mg/dL H mg/dL (7-23) Creatinine 1.2 mg/dL mg/dL (0.7-1.3) Estimated GFR > 60 Glucose 131 mg/dL H mg/dL (70-100) Calcium 9.6 mg/dL mg/dL (8.5-10.4) Total Bilirubin 1.1 mg/dL mg/dL (0.1-1.4) Conjugated Bilirubin 0.4 mg/dL mg/dL (0.0-0.5) Unconjugated Bilirubin 0.7 mg/dL mg/dL (0.0-1.1) AST 32 IU/L IU/L (17-59) ALT 45 IU/L IU/L (21-72) Alkaline Phosphatase 67 IU/L IU/L (38-126) Lactate Dehydrogenase Troponin I < 0.012 ng/mL ng/mL (0.000-0.034) Total Protein 7.2 g/dL g/dL (6.3-8.2) Albumin 4.1 g/dL g/dL (3.5-5.0) Lipase 59 IU/L IU/L (23-300) Stool Occult Bld Scrn H. pylori IgG Antibody NEGATIVE (NEG) Influenza A,B Rapid NEGATIVE FOR FLU (NEGATIVE) 08/06/17 08/06/17 08/06/17 07:43 07:42 07:30 WBC 14.17 10^3/uL H 10^3/uL (3.80-9.50) RBC 4.34 10^6/uL L 10^6/uL (4.40-6.38) Hgb 15.6 g/dL g/dL (13.7-17.5) Hct 43.8 % % (40.0-51.0) MCV 100.9 fL H fL (81.5-99.8) MCH 35.9 pg H pg (27.9-34.1) MCHC 35.6 g/dL g/dL (32.4-36.7) RDW 12.2 % % (11.5-15.2) Plt Count 253 10^3/uL 10^3/uL (150-400) MPV 8.9 fL fL (8.7-11.7) Neut % (Auto) 65.6 % % (39.3-74.2) Lymph % (Auto) 24.6 % % (15.0-45.0) [place]rill % (Auto) 8.5 % % (4.5-13.0) Eos % (Auto) 0.4 % L % (0.6-7.6) Baso % (Auto) 0.5 % % (0.3-1.7) Nucleat RBC Rel Count 0.0 % % (0.0-0.2) Absolute Neuts (auto) 9.30 10^3/uL H 10^3/uL (1.70-6.50) Absolute Lymphs (auto) 3.48 10^3/uL H 10^3/uL (1.00-3.00) Absolute Monos (auto) 1.21 10^3/uL H 10^3/uL (0.30-0.80) Absolute Eos (auto) 0.05 10^3/uL 10^3/uL (0.03-0.40) Absolute Basos (auto) 0.07 10^3/uL 10^3/uL (0.02-0.10) Absolute Nucleated RBC 0.00 10^3/uL 10^3/uL (0-0.01) Immature Gran % 0.4 % % (0.0-1.1) Immature Gran # 0.06 10^3/uL 10^3/uL (0.00-0.10) Sodium Potassium Chloride Carbon Dioxide Anion Gap BUN Creatinine Estimated GFR Glucose Calcium Total Bilirubin Conjugated Bilirubin Unconjugated Bilirubin AST ALT Alkaline Phosphatase Lactate Dehydrogenase 552 IU/L IU/L (313-618) Troponin I Total Protein Albumin Lipase Stool Occult Bld Scrn POSITIVE H (NEGATIVE) H. pylori IgG Antibody Influenza A,B Rapid Medications Given: Discontinued Medications Albuterol (Proventil Neb) 3 ml IH EDNOW ONE Stop: 08/06/17 07:56 Last Admin: 08/06/17 08:21 Dose: 3 ml Hydromorphone HCl (Dilaudid) 1 mg IVP EDNOW ONE Stop: 08/06/17 07:41 Last Admin: 08/06/17 07:52 Dose: 1 mg Sodium Chloride (Ns) 1,000 mls @ 0 mls/hr IV ONCE ONE; Wide Open PRN Reason: Protocol Stop: 08/06/17 07:41 Last Admin: 08/06/17 07:54 Dose: 1,000 mls Sodium Chloride (Ns) 1,000 mls @ 0 mls/hr IV ONCE ONE; TKO PRN Reason: Protocol Stop: 08/06/17 08:23 Last Admin: 08/06/17 08:25 Dose: 1,000 mls Ondansetron HCl (Zofran) 4 mg IVP EDNOW ONE Stop: 08/06/17 07:42 Last Admin: 08/06/17 07:52 Dose: 4 mg Departure - Departure Disposition: [facility] Acute Clinical Impression: Nausea, vomiting, and diarrhea, Hypoxia Abdominal pain Qualifiers: Abdominal location: generalized Qualified Code(s): R10.84 - Generalized abdominal pain Gastrointestinal bleeding Qualifiers: GI bleed type/associated pathology: unspecified gastrointestinal hemorrhage type Qualified Code(s): K92.2 - Gastrointestinal hemorrhage, unspecified
[2017-08-06 07:53] LABS: % IMMATURE GRANULYOCYTES 0.4 % (0.0-1.1); ABSOLUTE IMMATURE GRANULOCYTES 0.06 10^3/uL (0.00-0.10); ADD DIFF? NO; ADD MORPH? NO; ADD SCAN? NO; ATYPICAL LYMPHOCYTE FLAG 0 (0-99); FRAGMENT RBC FLAG 0 (0-99); HEMATOCRIT 43.8 % (40.0-51.0); HEMOGLOBIN 15.6 g/dL (13.7-17.5); LEFT SHIFT FLG 0 (0-99); LIPEMIA HEMOLYSIS FLAG 90 (0-99); MEAN CELL HEMOGLOBIN 35.9 pg (27.9-34.1); MEAN CELL HEMOGLOBIN CONCENTR. 35.6 g/dL (32.4-36.7); MEAN CELL VOLUME 100.9 fL (81.5-99.8); MEAN PLATELET VOLUME 8.9 fL (8.7-11.7); PLATELET CLUMPS FLAG 0 (0-99); PLATELET COUNT 253 10^3/uL (150-400); RED BLOOD CELL COUNT 4.34 10^6/uL (4.40-6.38); RED CELL DISTRIBUTION WIDTH 12.2 % (11.5-15.2)
[2017-08-06] MEDS ORDERED: ALBUTEROL 3 ML DEYVIAL IH ONE (07:55)
--- NOTE | 2017-08-06 08:08 | CPEKG ---
Heart Rate: 152 RR Interval: 395 QRSD Interval: 82 QT Interval: 344 QTC Interval: 547 QRS Syl[place]: 77 T Wave Syl[place]: 266 EKG Severity - ABNORMAL ECG - EKG Impression: sinus rhythm, artifact Electronically Signed By: Lino Baker 08-Aug-2017 21:36:54
[2017-08-06 08:10] LABS: ALANINE AMINOTRANSFERASE 45 IU/L (21-72); ALBUMIN 4.1 g/dL (3.5-5.0); ALKALINE PHOSPHATASE 67 IU/L (38-126); ANION GAP 16 mEq/L (8-16); ASPARTATE AMINOTRANSFERASE 32 IU/L (17-59); BILIRUBIN,TOTAL 1.1 mg/dL (0.1-1.4); BILIRUBIN-CONJUGATED 0.4 mg/dL (0.0-0.5); BILIRUBIN-UNCONJUGATED 0.7 mg/dL (0.0-1.1); CALCIUM 9.6 mg/dL (8.5-10.4); CARBON DIOXIDE 21 mEq/l (22-31); CHLORIDE 110 mEq/L (97-110); CREATININE 1.2 mg/dL (0.7-1.3); GLOMERULAR FILTRATION RATE > 60; GLUCOSE 131 mg/dL (70-100); POTASSIUM 4.1 mEq/L (3.5-5.2); SODIUM 147 mEq/L (134-144); TOTAL PROTEIN 7.2 g/dL (6.3-8.2)
[2017-08-06 08:21] LABS: TROPONIN I < 0.012 ng/mL (0.000-0.034)
[2017-08-06] MEDS ORDERED: IOPAMIDOL (ISOVUE-300) 100 ML BTL ONE (09:10)
[2017-08-06 11:11] VITALS: RESP 16
[2017-08-06] MEDS ORDERED: ALBUTEROL IH PRN (12:27)
[2017-08-06] MEDS ORDERED: ONDANSETRON DISINTEGRATING 4 MG TAB PO PRN (12:29)
[2017-08-06] MEDS ORDERED: ACETAMINOPHEN 325 MG TAB PO PRN (12:29)
[2017-08-06] MEDS ORDERED: ONDANSETRON 4 MG/2 ML VIAL IVP PRN (12:29)
[2017-08-06] MEDS ORDERED: ATENOLOL 100 MG TAB PO SCH (12:30)
[2017-08-06] MEDS ORDERED: RITONAVIR 100 MG PO SCH (12:30)
[2017-08-06] MEDS ORDERED: ALBUTEROL 200 PUFFS/18 GM MDI IH PRN (12:36)
--- NOTE | 2017-08-06 12:57 | GHP ---
[f rep st] HISTORY AND PHYSICAL DATE OF ADMISSION: 08/07/2017 HISTORY OF PRESENT ILLNESS: The patient is a pleasant 57-year-old gentleman with a history of HIV an d hepatitis C, as well as what sounds like fairly heavy daily alcohol use, presents to the ER with ab dominal pain. He went to [facility] in [place]. He has a number of visits, but I think what scar up today's visit was development of some bright red blood in the toilet. It sounds like he has a lot of liquid stool and has recently had more firm stoo l because he has eaten some meals. A lot of time he gets most of his calories from alcohol, drinking upwards of 12 beers a day. He has had no vomiting, no hematemesis, no coffee-ground emesis, no melena. He does not have known v arices. No fever or chills. No confusion. REVIEW OF SYSTEMS: Complete 10-point review of systems conducted, negative, except as noted in the H PI. PAST MEDICAL HISTORY: 1. HIV, on HAART, followed at [facility]. 2. Hepatitis C. Apparently, he has been treated in the past. 3. Anxiety. 4. Heavy alcohol use. 5. Chronic abdominal pain. 6. Hypertension. SOCIAL HISTORY: Uses a fair amount of marijuana. No tobacco or alcohol. FAMILY HISTORY: Reviewed and unremarkable. PHYSICAL EXAMINATION: PRESENTING VITALS: Temp 37.2, blood pressure 111/74, pulse 58, breathing 18 t imes a minute, 93% on 2 L. GENERAL: No acute distress. HEENT: Sclerae anicteric. Oropharynx misha r. Mucous membranes moist. NECK: Supple, without lymphadenopathy or JVD. LUNGS: Clear to auscult ation bilaterally. HEART: S1, S2. ABDOMEN: Soft, nontender, nondistended. LOWER EXTREMITIES: No edema. Calves are nontender. SKIN: Without rash. NEUROLOGIC: Nonfocal. RECTAL: Guaiac positiv e in the emergency department. LABORATORY DATA: Sodium 147, potassium 4.1, chloride 110, bicarb 21, BUN 28, creatinine 1.2, glucose 131. LFTs normal. Lipase normal. Troponin less than 0.012. Stool guaiac positive. Venous lactat e 0.7, white count 14, hematocrit 44. Platelets are 253,000. Influenza and H pylori negative. Abdom inal CT images reviewed, interpreted by me, shows liver hypodensities and mild diverticulosis without diverticulitis, otherwise unremarkable. Chest x-ray interpreted by me shows no acute cardiopulmonar y disease. EKG interpreted by me: It is sinus at 75 with normal axis and intervals and no ST or T-w ave changes. It is not atrial fibrillation. He is not tachycardic. ASSESSMENT/PLAN: This is a 57-year-old gentleman with a history of human immunodeficiency virus and hepatitis C, who presents with abdominal pain, some bright red blood per rectum. 1. Bright red blood per rectum. I suspect that this is in fact hemorrhoidal. Will trend his hemato crit and follow. He is already on a PPI. I do not suspect an upper source. 2. Hyponatremia. This is mild. I suspect it is secondary to poor p.o. intake. 3. Sinus tachycardia. The patient was tachycardic on presentation, but he is actually bradycardic h ere. EKG is read as atrial fibrillation, which it is definitely not. We will follow. 4. Human immunodeficiency virus. Continue his medications. 5. Hepatitis C. This has apparently been treated. 6. Alcoholism. We will start him on scheduled low-dose Librium today. I think he is at risk for wi thdrawal. He is not on it now. DISPOSITION STATUS: Observation. /[id number]/MODL
[2017-08-06] MEDS: PANTOPRAZOLE SODIUM 40 MG TAB PO SCH (13:06)
[2017-08-06] MEDS: ATENOLOL 50 MG TAB PO SCH (13:09)
[2017-08-06] MEDS: RITONAVIR 100 MG TAB PO SCH (13:10)
[2017-08-06] MEDS: EMTRICITABINE/TENOFOVIR 200MG/300MG TAB PO SCH (13:10)
[2017-08-06] MEDS: DARUNAVIR ETHANOLATE 800 MG TAB PO SCH (13:10)
--- NOTE | 2017-08-06 13:15 | ASMTCMCOM ---
CM Note CM Note Notes: Pt admitted w/ bright red blood per rectum, hyponatremia and sinus tachycardia; per MD notes, blood likely hemorrhoidal. Pt w/ hx of HIV, Hep C and ETOH abuse. Pt lives independently and is routinely followed by the [facility] for HAART. Anticipate pt will likely discharge home w/ no needs when medically stable. CM will cont to follow. Date Signed: 08/06/2017 01:14 PM Electronically Signed By:Jayshree Heath RN
[2017-08-06] MEDS: clonazePAM 1 MG TAB PO SCH ×2 (15:24→20:55)
[2017-08-06 16:42] LABS: HEMATOCRIT 39.3 % (40.0-51.0); HEMOGLOBIN 13.7 g/dL (13.7-17.5)
[2017-08-06] MEDS ORDERED: NON-FORMULARY NEW DRUG (Mirtazapine [Remeron] 45 MG) PO SCH (21:00)
[2017-08-06] MEDS ORDERED: MIRTAZAPINE 15 MG TAB PO SCH (21:00)
[2017-08-06] MEDS ORDERED: LISINOPRIL 10 MG TAB PO SCH (21:00)
[2017-08-07 04:51] LABS: HEMOGLOBIN 13.4 g/dL (13.7-17.5)
[2017-08-07 05:01] LABS: ANION GAP 8 mEq/L (8-16); CALCIUM 8.4 mg/dL (8.5-10.4); CARBON DIOXIDE 26 mEq/l (22-31); CHLORIDE 110 mEq/L (97-110); CREATININE 0.8 mg/dL (0.7-1.3); GLOMERULAR FILTRATION RATE > 60; GLUCOSE 103 mg/dL (70-100); POTASSIUM 4.2 mEq/L (3.5-5.2); SODIUM 144 mEq/L (134-144)
[2017-08-07 07:20] VITALS: BP 108/74; TEMP 97.9; O2SAT 88
--- NOTE | 2017-08-07 08:45 | HOSPPROG ---
Hospitalist Progress Note Assessment/Plan: complex 57 yo M w abd pain home today see dc summary Objective: Vital Signs Temp Pulse Resp BP Pulse Ox 36.6 C 59 L 16 108/74 88 L 08/07/17 07:18 08/07/17 07:18 08/07/17 07:18 08/07/17 07:18 08/07/17 07:18 Laboratory Results 08/07/17 04:30 08/07/17 04:30 08/06/17 08/07/17 08/08/17 05:59 05:59 05:59 Intake Total 2500 Output Total 275 Balance 2225 - Physical Exam Constitutional: no apparent distress Eyes: PERRL, anicteric sclera Ears, Nose, Mouth, Throat: moist mucous membranes, hearing normal Cardiovascular: regular rate and rhythym, no murmur, rub, or gallop, systolic murmur Respiratory: no respiratory distress, no rales or rhonchi Gastrointestinal: normoactive bowel sounds, soft, non-tender abdomen Genitourinary: no bladder fullness, No holder in urethra Skin: warm, normal color Musculoskeletal: full muscle strength Neurologic: AAOx3, sensation intact bilaterally Psychiatric: interacting appropriately ICD10 Worksheet Patient Problems: Problems Problem Status Onset Abdominal pain Acute Gastrointestinal bleeding Acute Hypoxia Acute Nausea, vomiting, and diarrhea Acute Alcohol withdrawal Acute
[2017-08-07] MEDS ORDERED: CITALOPRAM 20 MG TAB PO SCH (09:00)
[2017-08-07] MEDS ORDERED: NON-FORMULARY NEW DRUG (Citalopram Hydrobromide [Celexa] 40 MG) PO SCH (09:00)
[2017-08-07] MEDS ORDERED: ATORVASTATIN CALCIUM 20 MG TAB PO SCH (09:00)
[2017-08-07] MEDS: ATENOLOL 50 MG TAB PO SCH (09:18)
[2017-08-07] MEDS: PANTOPRAZOLE SODIUM 40 MG TAB PO SCH (09:19)
[2017-08-07] MEDS: clonazePAM 1 MG TAB PO SCH (09:19)
[2017-08-07] MEDS: EMTRICITABINE/TENOFOVIR 200MG/300MG TAB PO SCH (09:19)
[2017-08-07] MEDS: DARUNAVIR ETHANOLATE 800 MG TAB PO SCH (09:19)
[2017-08-07] MEDS: RITONAVIR 100 MG TAB PO SCH (09:19)
--- NOTE | 2017-08-07 09:19 | GDS ---
[f rep st] DISCHARGE SUMMARY DISCHARGE DIAGNOSES: 1. Bright red blood per rectum without measurable blood loss likely secondary to hemorrhoids. 2. Human immunodeficiency virus. 3. Alcohol use disorder. 4. Hepatitis C. 5. Anxiety. 6. Hypertension. Please see admission history and physical by Dr. Malcolm Rojas. The patient presented with some abd ominal pain plus some bright red blood per rectum. He did not have signs of upper or lower GI bleedi ng. Other than that, he had stable hematocrit. He had a benign exam. He did not have pancreatitis. He did not have abnormal LFTs. Hematocrit was cycled with no change. He did not have alcohol with drawal while here. He was on a PPI and an H2 liz at home. He was advised to continue and modera te his alcohol use. /[id number]/MODL
[2017-08-07 09:22] VITALS: PULSE 66
--- NOTE | 2017-08-07 16:29 | ASDISCHSUM ---
Discharge Information Plan Status:Home with No Needs Medically Cleared to Leave:08/06/2017 Discharge Date:08/07/2017 12:00 PM CM D/C Disposition:Home, Routine, Self-Care ADT D/C Disposition:Home, Routine, Self-Care Projected Discharge Date:08/07/2017 12:00 AM Transportation at D/C: Discharge Delay Reason: Follow-Up Date:08/07/2017 12:00 AM Discharge Slot: Final Diagnosis:Bright red blood per rectum, likey hemorrhoidal, hyponatremia, sinus tach, HIV, Hep C, alcoholism Placement Information Patient Contact Information Contact Name:CANELO Relationship:Mother Address: Work Phone: City: [facility] Phone: [facility]/[employer] Code: Email: Financial Information Financial Class: Primary Plan Desc:MEDICARE OUTPATIENT Primary Plan Number:[id number] Secondary Plan Desc:MEDICAID HEALTH FIRST [place] OP Secondary Plan Number:[id number] Assessment Information [facility] CM Progress Note CM Note CM Note Notes: Pt admitted w/ bright red blood per rectum, hyponatremia and sinus tachycardia; per MD notes, blood likely hemorrhoidal. Pt w/ hx of HIV, Hep C and ETOH abuse. Pt lives independently and is routinely followed by the [facility] for HAART. Anticipate pt will likely discharge home w/ no needs when medically stable. CM will cont to follow. Date Signed: 08/06/2017 01:14 PM Electronically Signed By:Jayshree Heath RN Intervention Information
== END 2017-08-07 12:00 | disposition home or self-care (01) ==
LOC: CED 07:16 → CEDHOLD 09:24 → F3E 10:59
PROVIDERS: ADMIT Internal Medicine; ATTEND Internal Medicine
PROC: 3E0337Z Introduction of Electrolytic and Water Balance Substance into Peripheral Vein, Percutaneous Approach (ICD-10-PCS; principal; 2017-08-06)
DX: K62.5 Hemorrhage of anus and rectum (principal); B19.20 Unspecified viral hepatitis C without hepatic coma; R09.02 Hypoxemia; R10.84 Generalized abdominal pain; E87.1 Hypo-osmolality and hyponatremia; R00.0 Tachycardia, unspecified; E86.9 Volume depletion, unspecified; F41.9 Anxiety disorder, unspecified; R11.2 Nausea with vomiting, unspecified; I10 Essential (primary) hypertension; F10.20 Alcohol dependence, uncomplicated; F12.10 Cannabis abuse, uncomplicated; F12.90 Cannabis use, unspecified, uncomplicated; Z21 Asymptomatic human immunodeficiency virus [HIV] infection status; Z87.891 Personal history of nicotine dependence; Z82.49 Family history of ischemic heart disease and other diseases of the circulatory system
CPT/HCPCS: 71020; 74177; 93005; 96361; 96374; 96375; 99285; G0378; J1170; J2405; Q9967; 80048-PO; 80076-PO; 82270-PO; 83605-PO; 83690-PO; 84484-PO; 85025-PO; 86677-PO; 87400-PO

== ENCOUNTER 2018-01-17 08:34 | Emergency (ER) | payer OTHER, MEDICAID ==
[2018-01-17] MEDS ORDERED: HALOPERIDOL LACT 5 MG/ML INJ IVP ONE (08:55)
[2018-01-17] MEDS ORDERED: NS 1,000 ML IV ONE (08:56)
[2018-01-17 09:08] LABS: PLATELET COUNT 297 10^3/uL (150-400)
--- NOTE | 2018-01-17 09:08 | EDPHY ---
H & P Stated Complaint: ABD PAIN INCREASED SINCE THIS AM, N/V Time Seen by Provider: 01/17/18 08:37 HPI/ROS: Chief Complaint: Abdominal pain HPI: 57-year-old male with a history of chronic abdominal pain, pancreatitis, hepatitis, cyclic vomiting syndrome and HIV began having severe, 10/10 diffuse abdominal pain when he woke up this morning. This is exactly like his multiple presentations in the past. Some nausea vomiting. No diarrhea or constipation. No blood or coffee-grounds in his vomit. No dark tarry stools or blood per rectum. Some subjective chills. Otherwise has been in his usual state health. Is does admit to drinking alcohol and continue to use marijuana heavily. Last drink was last night. Does have a history of pancreatitis in the past. ROS: 10 point Review of Systems is negative except as noted in the HPI. PMH: HIV, hepatitis-C, chronic alcohol abuse, marijuana use, cyclic vomiting syndrome Social History: Positive smoking, daily heavy alcohol, daily heavy marijuana use Family History: non-contributory Physical Exam: Gen: Awake, Alert, No Distress HEENT: Nose: no rhinorrhea Eyes: PERRLA, EOMI Mouth: Moist mucosa Neck: Supple, no JVD Chest: nontender, lungs clear to auscultation Heart: S1, S2 normal, no murmur Abd: Soft, diffuse tenderness, no focal guarding, no rebound Back: no CVA tenderness, no midline tenderness Ext: no edema, non-tender Skin: no rash Neuro: CN II-XII intact, Sensation grossly intact, Strength 5/5 in bilateral upper and lower extremities - Personal History Tetanus Vaccine Date: WITHIN 10 YRS - Medical/Surgical History Hx Asthma: No Hx Chronic Respiratory Disease: No Hx Diabetes: No Hx Cardiac Disease: Yes Hx Renal Disease: No Hx Cirrhosis: No Hx Alcoholism: Yes Hx HIV/AIDS: Yes Hx Splenectomy or Spleen Trauma: No Other PMH: Chronic abdominal pain, HIV, Hep c+, htn, current alcoholic. psh- yaneth - Social History Smoking Status: Former smoker Constitutional: Initial Vital Signs Temperature (C) 36.5 C 01/17/18 08:38 Heart Rate 76 01/17/18 08:38 Respiratory Rate 22 H 01/17/18 08:38 Blood Pressure 140/94 H 01/17/18 08:38 O2 Sat (%) 92 01/17/18 08:38 O2 Delivery Mode Room Air O2 (L/minute) 2 Allergies/Adverse Reactions: No Known Allergies Allergy (Verified 01/17/18 08:38) Home Medications: Medication Instructions Recorded Citalopram Hydrobromide [Celexa] 40 mg PO DAILY 05/27/14 Emtricitabine/Tenofovir [Truvada 1 tab PO DAILY 05/27/14 200MG/300MG (*)] Mirtazapine [Remeron] 45 mg PO HS 05/27/14 Darunavir Ethanolate [Prezista] 800 mg PO DAILY 01/06/16 Ritonavir [Norvir] 100 mg PO DAILY 01/06/16 clonazePAM [klonoPIN (*)] 1 mg PO TID #9 tab 01/08/16 Albuterol [Ventolin Hfa Inhaler] 1 - 2 puffs IH Q4 PRN 08/06/17 Atenolol [Tenormin 100 mg (*)] 100 mg PO DAILY 08/06/17 Atorvastatin Calcium [Lipitor 20 20 mg PO DAILY 08/06/17 mg (*)] Lisinopril [Zestril 10 mg (*)] 10 mg PO HS 08/06/17 Naproxen [Naprosyn] 500 mg PO BID 08/06/17 Pantoprazole Sodium [Protonix 40mg 40 mg PO DAILY 08/06/17 (*)] Dicyclomine [Bentyl 20 MG (*)] 20 mg PO TID 08/07/17 Ondansetron Odt [Zofran Odt 4 mg 4 mg PO TID PRN 08/07/17 (*)] Medical Decision Making Differential Diagnosis: Patient has a leukocytosis on his laboratory evaluation however looking through his past medical records this is chronic for him and his unchanged. Patient's remainder of his LFTs and lipase are unremarkable. Chemistries unremarkable. He is feeling improved after Haldol and some fentanyl. He is awake alert acting appropriately. Repeat examination reveals a soft benign abdomen. He will be discharged with follow up with primary care physician. I have counseled him to discontinue alcohol and marijuana use and to seek help with treatment for these. - Data Points Laboratory Results: Laboratory Results 01/17/18 08:45 01/17/18 08:45 05/29/18 05/29/18 08:45 08:45 WBC 18.99 10^3/uL H 10^3/uL (3.80-9.50) RBC 4.49 10^6/uL 10^6/uL (4.40-6.38) Hgb 15.8 g/dL g/dL (13.7-17.5) Hct 44.9 % % (40.0-51.0) MCV 100.0 fL H fL (81.5-99.8) MCH 35.2 pg H pg (27.9-34.1) MCHC 35.2 g/dL g/dL (32.4-36.7) RDW 12.3 % % (11.5-15.2) Plt Count 297 10^3/uL 10^3/uL (150-400) MPV 9.2 fL fL (8.7-11.7) Neut % (Auto) 73.1 % % (39.3-74.2) Lymph % (Auto) 18.6 % % (15.0-45.0) Atkinson % (Auto) 6.7 % % (4.5-13.0) Eos % (Auto) 0.2 % L % (0.6-7.6) Baso % (Auto) 0.5 % % (0.3-1.7) Nucleat RBC Rel Count 0.0 % % (0.0-0.2) Absolute Neuts (auto) 13.89 10^3/uL H 10^3/uL (1.70-6.50) Absolute Lymphs (auto) 3.53 10^3/uL H 10^3/uL (1.00-3.00) Absolute Monos (auto) 1.27 10^3/uL H 10^3/uL (0.30-0.80) Absolute Eos (auto) 0.03 10^3/uL 10^3/uL (0.03-0.40) Absolute Basos (auto) 0.09 10^3/uL 10^3/uL (0.02-0.10) Absolute Nucleated RBC 0.00 10^3/uL 10^3/uL (0-0.01) Immature Gran % 0.9 % % (0.0-1.1) Immature Gran # 0.18 10^3/uL H 10^3/uL (0.00-0.10) Sodium 144 mEq/L mEq/L (135-145) Potassium 4.7 mEq/L mEq/L (3.3-5.0) Chloride 108 mEq/L mEq/L (97-110) Carbon Dioxide 21 mEq/l L mEq/l (22-31) Anion Gap 15 mEq/L mEq/L (8-16) BUN 25 mg/dL H mg/dL (7-23) Creatinine 1.3 mg/dL mg/dL (0.7-1.3) Estimated GFR 57 Glucose 130 mg/dL H mg/dL (70-100) Calcium 9.7 mg/dL mg/dL (8.5-10.4) Total Bilirubin 1.0 mg/dL mg/dL (0.1-1.4) AST 33 IU/L IU/L (17-59) ALT 49 IU/L IU/L (21-72) Alkaline Phosphatase 80 IU/L IU/L (38-126) Total Protein 7.8 g/dL g/dL (6.3-8.2) Albumin 4.3 g/dL g/dL (3.5-5.0) Lipase 78 IU/L IU/L (23-300) Medications Given: Discontinued Medications Fentanyl (Sublimaze) 50 mcg IVP EDNOW ONE Stop: 01/17/18 09:24 Last Admin: 01/17/18 09:30 Dose: 50 mcg Fentanyl (Sublimaze) 50 mcg IVP EDNOW ONE Stop: 01/17/18 10:18 Last Admin: 01/17/18 10:23 Dose: 50 mcg Haloperidol Lactate (Haldol Injection) 2.5 mg IVP EDNOW ONE Stop: 01/17/18 08:56 Last Admin: 01/17/18 09:02 Dose: 2.5 mg Sodium Chloride (Ns) 1,000 mls @ 0 mls/hr IV ONCE ONE; Wide Open PRN Reason: Protocol Stop: 01/17/18 08:57 Last Admin: 01/17/18 09:02 Dose: 1,000 mls Departure - Departure Disposition: Home, Routine, Self-Care Clinical Impression: Abdominal pain Condition: Good Instructions: Acute Abdominal Pain (ED) Additional Instructions: Please follow up with primary care physician for resource for help decreasing her alcohol and marijuana consumption. Return to the emergency department for worsening pain, uncontrolled nausea vomiting, fevers, chills, or any other concerns. Referrals: Etienne Yang MD [Primary Care Provider] - As per Instructions
[2018-01-17] MEDS ORDERED: fentaNYL 100 MCG/2 ML INJ IVP ONE ×2 (09:23→10:17)
[2018-01-17 10:31] VITALS: BP 173/105
== END 2018-01-17 11:15 | disposition home or self-care (01) ==
LOC: CED 08:34
DX: R10.84 Generalized abdominal pain (principal); B20 Human immunodeficiency virus [HIV] disease; E86.9 Volume depletion, unspecified; I10 Essential (primary) hypertension; Z87.891 Personal history of nicotine dependence
CPT/HCPCS: 96361; 96374; 96375; 96376; 99284; J1630; J3010; 80053-PO; 83690-PO; 85025-PO

== ENCOUNTER 2018-01-20 08:00 | Emergency (ER) | payer OTHER, MEDICAID ==
--- NOTE | 2018-01-20 08:15 | EDPHY ---
H & P Stated Complaint: Abd pain x3 days seen on 01/17 . Chronic abd pn hx Time Seen by Provider: 01/20/18 08:04 HPI/ROS: 57-year-old male with history of HIV on HAART therapy, hepatitis C, pancreatitis , alcohol abuse, chronic abdominal pain presents today complaining of diffuse abdominal pain. He was seen here 2 days ago with a similar presentation. No fever. no vomiting and no diarrhea at present. He states there is nothing different today but that his primary care requested he come back to the ED. He has hx of cholecystectomy, denies other abdominal surgeries. He admits he drinks alcohol daily, denies alcohol withdrawal issues. Review of systems As per HPI General no fever no chills no weakness HEENT no eye pain no eye discharge. No eye redness, no sore throat Respiratory no cough, no shortness of breath Cardiac no chest pain, no peripheral edema GI pos abdominal pain, no diarrhea, no constipation, some nausea, no vomiting no flank pain, no hematuria, no dysuria Musculoskeletal no myalgias, no joint pain Heme no easy bruising, no easy bleeding Endo no polyuria, no polydipsia Skin no rashes, no pruritus Neuro no syncope, no dizziness, no headaches Psych is no suicidal ideation, no homicidal ideation, positive history of alcohol abuse and heavy marijuana use Source: Patient - Personal History Current Tetanus Diphtheria and Acellular Pertussis (TDAP): Yes Tetanus Vaccine Date: WITHIN 10 YRS - Medical/Surgical History Hx Asthma: No Hx Chronic Respiratory Disease: No Hx Diabetes: No Hx Cardiac Disease: Yes Hx Renal Disease: No Hx Cirrhosis: No Hx Alcoholism: Yes Hx HIV/AIDS: Yes Hx Splenectomy or Spleen Trauma: No Other PMH: Chronic abdominal pain, HIV, Hep c+, htn, current alcoholic. psh- yaneth - Family History Significant Family History: No pertinent family hx - Social History Smoking Status: Former smoker Alcohol Use: Heavy Drug Use: Marijuana - Physical Exam Exam: 57-year-old male, vital signs stable, afebrile in no acute distress HEENT atraumatic normocephalic, extraocular muscles intact, anicteric Oropharynx negative for erythema negative exudate, tolerating her own secretions Neck supple no meningismus Lungs clear to auscultation bilaterally Heart regular rate and rhythm without murmur rub or gallop Abdomen nondistended normoactive bowel sounds soft nontender, no focal tenderness, no guarding no rebound no pulsatile mass Back no CVA tenderness, no step-offs, no spinal tenderness Extremities no cyanosis clubbing or edema Neuro alert and oriented, no focal deficits Skin-scattered ecchymoses on left forearm and upper arm Constitutional: Initial Vital Signs Temperature (C) 37 C 01/20/18 08:06 Heart Rate 62 01/20/18 08:06 Respiratory Rate 18 01/20/18 08:06 Blood Pressure 145/96 H 01/20/18 08:06 O2 Sat (%) 94 01/20/18 08:06 O2 Delivery Mode Room Air Allergies/Adverse Reactions: No Known Allergies Allergy (Verified 01/17/18 08:38) Home Medications: Medication Instructions Recorded Citalopram Hydrobromide [Celexa] 40 mg PO DAILY 05/27/14 Emtricitabine/Tenofovir [Truvada 1 tab PO DAILY 05/27/14 200MG/300MG (*)] Mirtazapine [Remeron] 45 mg PO HS 05/27/14 Darunavir Ethanolate [Prezista] 800 mg PO DAILY 01/06/16 Ritonavir [Norvir] 100 mg PO DAILY 01/06/16 clonazePAM [klonoPIN (*)] 1 mg PO TID #9 tab 01/08/16 Atenolol [Tenormin 100 mg (*)] 100 mg PO DAILY 08/06/17 Atorvastatin Calcium [Lipitor 20 20 mg PO DAILY 08/06/17 mg (*)] Lisinopril [Zestril 10 mg (*)] 10 mg PO HS 08/06/17 Naproxen [Naprosyn] 500 mg PO BID 08/06/17 Pantoprazole Sodium [Protonix 40mg 40 mg PO DAILY 08/06/17 (*)] Dicyclomine [Bentyl 20 MG (*)] 20 mg PO TID 08/07/17 Medical Decision Making ED Course/Re-evaluation: Patient seen and evaluated for abdominal pain. I have reviewed his visit reports from 2017 and 2018 in our system, [facility], [facility] inpatient. I have reviewed his medication list and allergies. Just prior to entering the patients room with the curtain pulled, the patient was lying on his back and snoring. As I pulled the curtain back he awoke and began fidgeting in the bed and appeared slighly uncomfortable. He was given Haldol 2.5 mg IVP and 750 cc of normal saline . He requested to leave AMA after I informed him that I was awaiting the laboratory values and xray results prior to using any narcotic medicines. While discussing his leaving and having him sign the AMA form , he was completely comfortable and in no distress whatsoever, no longer fidgeting in the bed. He refused to wait for lab results and refused to have xrays to be evaluated for the potential for dilated bowel. He did admit that he was actually feeling better after the haldol and fluids. He left prior to the lab results. CBC with elevated WBC, a trend he has had in the past. Down from 18 , 2 days ago. lipase normal lfts normal creatinine 1.4 , up from 1.3-pt was given fluids in the ED prior to signing out AMA. Imp Chronic abdominal pain Mild dehydration Plan Initial plan was to hydrate, check lab values and treat chronic abdominal pain with alternative medications to narcotics. Pt was partially hydrated, labs wnl for patients baseline other than as noted. Pt left AMA. Advised that he could return and that he should follow up with his pcp tushar. I contacted his primary care Dr Yang @[phone] to let him know that I had seen the patient, notify him of lab results and that he had a soft abdomen with good bowel sounds during his visit here, and that I had reccomended close follow up with his pcp. MG Differential Diagnosis: Differential diagnosis considered but not limited to: Pancreatitis, appendicitis, gastritis, chronic abdominal pain, cyclical vomiting , ischemic bowel, constipation, enteritis - Data Points Laboratory Results: Laboratory Results 01/20/18 08:30 01/20/18 08:30 01/20/18 01/20/18 01/20/18 08:30 08:30 08:30 WBC 13.38 10^3/uL H 10^3/uL (3.80-9.50) RBC 4.50 10^6/uL 10^6/uL (4.40-6.38) Hgb 16.1 g/dL g/dL (13.7-17.5) Hct 45.0 % % (40.0-51.0) MCV 100.0 fL H fL (81.5-99.8) MCH 35.8 pg H pg (27.9-34.1) MCHC 35.8 g/dL g/dL (32.4-36.7) RDW 12.2 % % (11.5-15.2) Plt Count 277 10^3/uL 10^3/uL (150-400) MPV 9.3 fL fL (8.7-11.7) Neut % (Auto) 72.0 % % (39.3-74.2) Lymph % (Auto) 19.5 % % (15.0-45.0) [place]geman % (Auto) 7.5 % % (4.5-13.0) Eos % (Auto) 0.1 % L % (0.6-7.6) Baso % (Auto) 0.4 % % (0.3-1.7) Nucleat RBC Rel Count 0.0 % % (0.0-0.2) Absolute Neuts (auto) 9.61 10^3/uL H 10^3/uL (1.70-6.50) Absolute Lymphs (auto) 2.61 10^3/uL 10^3/uL (1.00-3.00) Absolute Monos (auto) 1.01 10^3/uL H 10^3/uL (0.30-0.80) Absolute Eos (auto) 0.02 10^3/uL L 10^3/uL (0.03-0.40) Absolute Basos (auto) 0.06 10^3/uL 10^3/uL (0.02-0.10) Absolute Nucleated RBC 0.00 10^3/uL 10^3/uL (0-0.01) Immature Gran % 0.5 % % (0.0-1.1) Immature Gran # 0.07 10^3/uL 10^3/uL (0.00-0.10) VBG Lactic Acid 1.4 mmol/L mmol/L (0.7-2.1) Sodium 144 mEq/L mEq/L (135-145) Potassium 4.3 mEq/L mEq/L (3.3-5.0) Chloride 107 mEq/L mEq/L (97-110) Carbon Dioxide 22 mEq/l mEq/l (22-31) Anion Gap 15 mEq/L mEq/L (8-16) BUN 32 mg/dL H mg/dL (7-23) Creatinine 1.4 mg/dL H mg/dL (0.7-1.3) Estimated GFR 52 Glucose 148 mg/dL H mg/dL (70-100) Calcium 9.9 mg/dL mg/dL (8.5-10.4) Total Bilirubin 1.3 mg/dL mg/dL (0.1-1.4) AST 40 IU/L IU/L (17-59) ALT 46 IU/L IU/L (21-72) Alkaline Phosphatase 76 IU/L IU/L (38-126) Total Protein 8.0 g/dL g/dL (6.3-8.2) Albumin 4.4 g/dL g/dL (3.5-5.0) Lipase 56 IU/L IU/L (23-300) Medications Given: Discontinued Medications Haloperidol Lactate (Haldol Injection) 2.5 mg IVP EDNOW ONE Stop: 01/20/18 08:27 Last Admin: 01/20/18 08:37 Dose: 2.5 mg Sodium Chloride (Ns) 1,000 mls @ 0 mls/hr IV ONCE ONE PRN Reason: Wide Open Stop: 01/20/18 08:27 Last Admin: 01/20/18 08:30 Dose: 1,000 mls Departure - Departure Disposition: Against Medical Advice Clinical Impression: Abdominal pain Condition: Good Instructions: Chronic Pain (ED), Abdominal Pain (ED) Additional Instructions: You have decided to leave against medical advice. You have been advised to stay until your lab results return and your xrays are done. You have refused xrays. You are welcome to return anytime. I advise you to follow up with your primary care doctor as soon as possible. Referrals: Etienne Yang MD [Primary Care Provider] - As per Instructions
[2018-01-20] MEDS ORDERED: HALOPERIDOL LACT 5 MG/ML INJ IVP ONE (08:26)
[2018-01-20] MEDS ORDERED: NS 1,000 ML IV ONE (08:26)
[2018-01-20] MEDS ORDERED: ONDANSETRON 4 MG/2 ML VIAL IVP ONE (08:26)
[2018-01-20 08:59] LABS: PLATELET COUNT 277 10^3/uL (150-400)
[2018-01-20 09:10] VITALS: BP 113/81
== END 2018-01-20 08:57 | disposition left against medical advice (07) ==
LOC: CED 08:00
DX: R10.9 Unspecified abdominal pain (principal); B20 Human immunodeficiency virus [HIV] disease; Z87.891 Personal history of nicotine dependence
CPT/HCPCS: 96374; 99284; J1630; 80053-PO; 83605-PO; 83690-PO; 85025-PO

== ENCOUNTER 2018-05-24 15:14 | Emergency (ER) | payer MEDICAID, OTHER ==
[2018-05-24] MEDS ORDERED: NS 1,000 ML IV ONE ×3 (15:59→17:30)
[2018-05-24] MEDS ORDERED: METOCLOPRAMIDE 10 MG/2 ML VIAL IVP ONE (16:21)
[2018-05-24] MEDS ORDERED: LORazepam 2 MG/ML INJ IVP ONE (16:23)
[2018-05-24] MEDS ORDERED: KETOROLAC 15 MG/1 ML SDV IVP ONE (16:23)
--- NOTE | 2018-05-24 17:32 | EDPHY ---
H & P Stated Complaint: N/V/D since this am. Abdominal pain Time Seen by Provider: 05/24/18 15:38 HPI/ROS: This patient presents with diffuse abdominal pain he describes as severe intensity that started early this morning. He has associated vomiting and some loose stools. He has been vomiting throughout the day and is unable tolerate p.o. Fluids due to the vomiting. He has had similar episodes in the past and continues to abuse alcohol and marijuana. He drinks a 12 pack of alcohol yesterday. None today due to his symptoms. Has been seen for cyclic vomiting in the past pieces that he has more abdominal pain with this episode than usual. He does report he has a sense that hot shower or bath would help with his symptoms. He came by private vehicle-friend drove him. ROS: Constitutional: No fevers. HEENT: No URI symptoms no pulmonary: No dyspnea. Cardiovascular: No heart palpitations or lightheadedness GI: No abdominal distension. No dark tarry emesis or hematemesis. No bloody stools. : No hematuria. No dysuria. No flank pain new line integumentary: No skin rash Neuro: No complaints 10 point review of symptoms is performed and otherwise negative with exception of pertinent positives and negatives listed in HPI and ROS Source: Patient Exam Limitations: No limitations - Personal History Current Tetanus Diphtheria and Acellular Pertussis (TDAP): Yes Tetanus Vaccine Date: WITHIN 10 YRS - Medical/Surgical History Hx Asthma: No Hx Chronic Respiratory Disease: No Hx Diabetes: No Hx Cardiac Disease: Yes Hx Renal Disease: No Hx Cirrhosis: No Hx Alcoholism: Yes Hx HIV/AIDS: Yes Hx Splenectomy or Spleen Trauma: No Other PMH: Chronic abdominal pain, HIV, Hep c+, htn, current alcoholic. psh- yaneth - Family History Significant Family History: No pertinent family hx - Social History Smoking Status: Former smoker Alcohol Use: Heavy Drug Use: Marijuana - Physical Exam Exam: General Appearance: Alert, no distress. Eyes: Pupils equal and round no pallor or injection. ENT, Mouth: Mucous membranes dry. Respiratory: There are no retractions, lungs are clear to auscultation. Cardiovascular: Regular rate and rhythm. Gastrointestinal: Mildly hypoactive bowel sounds. Appreciate no ascites or organomegaly. He has diffuse tenderness slightly more prominent in right lower quadrant than elsewhere. No guarding or rebound. Back: No CVA tenderness Neurological: GCS 15 with no focal deficits. Skin: Warm and dry, no rashes. Musculoskeletal: Neck is supple nontender. Extremities are symmetrical, full range of motion. Psychiatric: Mood and affect are normal DIFFERENTIAL DIAGNOSIS: After history and physical exam differential diagnosis was considered for alcoholic ketoacidosis, hepatitis, cyclic vomiting syndrome, appendicitis viral gastroenteritis, pyelonephritis Constitutional: Initial Vital Signs Temperature (C) 37 C 05/24/18 15:31 Heart Rate 110 H 05/24/18 15:31 Respiratory Rate 16 05/24/18 15:31 Blood Pressure 141/108 H 05/24/18 15:31 O2 Sat (%) 92 05/24/18 15:31 O2 Delivery Mode Room Air Allergies/Adverse Reactions: No Known Allergies Allergy (Verified 05/24/18 15:33) Home Medications: Medication Instructions Recorded Citalopram Hydrobromide [Celexa] 40 mg PO DAILY 05/27/14 Emtricitabine/Tenofovir [Truvada 1 tab PO DAILY 05/27/14 200MG/300MG (*)] Mirtazapine [Remeron] 45 mg PO HS 05/27/14 Darunavir Ethanolate [Prezista] 800 mg PO DAILY 01/06/16 Ritonavir [Norvir] 100 mg PO DAILY 01/06/16 clonazePAM [klonoPIN (*)] 1 mg PO TID #9 tab 01/08/16 Atorvastatin Calcium [Lipitor 20 20 mg PO DAILY 08/06/17 mg (*)] Lisinopril [Zestril 10 mg (*)] 10 mg PO HS 08/06/17 Pantoprazole Sodium [Protonix 40mg 40 mg PO DAILY 08/06/17 (*)] Hyoscyamine Sulfate [Levsin, 0.125 - 0.25 mg SL Q6 PRN #20 tab 05/24/18 Hyomax-Sl 0.125 mg (*)] Promethazine HCl [Phenergan 25 mg CA Q6 PRN #4 suppr 05/24/18 Rectal] Medical Decision Making - Diagnostics Imaging Results: Imaging Impressions Abdomen CT 05/24/18 17:33 Impression: No evidence for acute intraabdominal or pelvic abnormality. No CT findings for appendicitis. Stable chronic findings, as above. Results called and discussed with Dwight Farley M.D., on May 24, 2018 at 1813. E:JUNI/pauline Imaging: Discussed imaging studies w/ raw stock drier tender Radiologist ED Course/Re-evaluation: IV normal saline bolus x2 L, Benadryl, Reglan, Toradol, Ativan IV At 5:30 p.m. The patient still reports 8 or 9/10 abdominal pain on repeat examination reports that there is more tenderness in the right lower quadrant than elsewhere. Review of labs reveals significant leukocytosis to 22,000. Given these findings will proceed with CT abdomen and pelvis Patient is treated with 5 of morphine with relief of his pain. After review of CT results with radiologist, counseled patient regarding benign- appearing abdominal CT. I think that this episode attributable to cyclic vomiting syndrome with crampy abdominal pain and counseled regarding this. No red flag findings on his workup. Will send home with Levsin, Phenergan, Tylenol , Light diet and encourage abstinence from drinking and marijuana. He will follow up with primary care physician understands need to return emergency department should he develop worsening symptoms despite the treatment plan - Data Points Laboratory Results: 05/24/18 05/24/18 16:49 16:19 POC Sodium 143 mEq/L mEq/L (135-145) POC Potassium 4.0 mEq/L mEq/L (3.3-5.0) POC Chloride 104.0 mEq/L mEq/L (97-110) POC Total CO2 20 mEq/L L mEq/L (22-31) POC BUN 17 mg/dL mg/dL (7-23) POC Creatinine 1.6 mg/dL H mg/dL (0.7-1.3) POC Glucose 126 mg/dL H mg/dL (70-100) POC Calcium 10.0 mg/dL mg/dL (8.5-10.4) POC Total Bilirubin 0.9 mg/dL mg/dL (0.1-1.4) POC GGT 69 IU/L H IU/L (5-65) POC AST 40 IU/L IU/L (17-59) POC ALT 36 IU/L IU/L (21-72) POC Alk Phosphatase 65 IU/L IU/L (38-126) POC Total Protein 7.5 g/dL g/dL (6.3-8.2) POC Albumin 4.6 g/dL g/dL (3.5-5.0) POC Amylase 11 IU/L L IU/L (30-110) Medications Given: Discontinued Medications Diphenhydramine HCl (Benadryl Injection) 25 mg IVP EDNOW ONE Stop: 05/24/18 16:24 Last Admin: 05/24/18 16:34 Dose: 25 mg Sodium Chloride (Ns) 1,000 mls @ 0 mls/hr IV ONCE ONE PRN Reason: Wide Open Stop: 05/24/18 16:00 Last Admin: 05/24/18 16:00 Dose: 1,000 mls Sodium Chloride (Ns) 1,000 mls @ 0 mls/hr IV ONCE ONE; Wide Open PRN Reason: Protocol Stop: 05/24/18 16:48 Last Admin: 05/24/18 16:51 Dose: 1,000 mls Sodium Chloride (Ns) 1,000 mls @ 0 mls/hr IV ONCE ONE; Wide Open PRN Reason: Protocol Stop: 05/24/18 17:31 Last Admin: 05/24/18 17:41 Dose: 1,000 mls Ketorolac Tromethamine (Toradol) 15 mg IVP EDNOW ONE Stop: 05/24/18 16:24 Last Admin: 05/24/18 16:33 Dose: 15 mg Lorazepam (Ativan Injection) 1 mg IVP EDNOW ONE Stop: 05/24/18 16:24 Last Admin: 05/24/18 16:34 Dose: 1 mg Metoclopramide HCl (Reglan Injection) 5 mg IVP EDNOW ONE Stop: 05/24/18 16:22 Last Admin: 05/24/18 16:33 Dose: 5 mg Morphine Sulfate (Morphine) 5 mg IVP EDNOW ONE Stop: 05/24/18 17:31 Last Admin: 05/24/18 17:42 Dose: 5 mg Point of Care Test Results: CBC CBC Collection Date 05/24/18 CBC Collection Time 15:50 WBC 22.3 RBC 3.98 HGB 15.1 HCT 41.3 PLT 282 Neut # 18.5 Neut 82.8 LYMPH # 1.8 LYMPH 8.1 Other WBC # 2.0 Other WBC 9.1 MCV 103.8 Chemistry 05/24/18 05/24/18 16:49 16:19 POC Sodium 143 mEq/L mEq/L (135-145) POC Potassium 4.0 mEq/L mEq/L (3.3-5.0) POC Chloride 104.0 mEq/L mEq/L (97-110) POC Total CO2 20 mEq/L L mEq/L (22-31) POC BUN 17 mg/dL mg/dL (7-23) POC Creatinine 1.6 mg/dL H mg/dL (0.7-1.3) POC Glucose 126 mg/dL H mg/dL (70-100) POC Calcium 10.0 mg/dL mg/dL (8.5-10.4) POC Total Bilirubin 0.9 mg/dL mg/dL (0.1-1.4) POC GGT 69 IU/L H IU/L (5-65) POC AST 40 IU/L IU/L (17-59) POC ALT 36 IU/L IU/L (21-72) POC Alk Phosphatase 65 IU/L IU/L (38-126) POC Total Protein 7.5 g/dL g/dL (6.3-8.2) POC Albumin 4.6 g/dL g/dL (3.5-5.0) POC Amylase 11 IU/L L IU/L (30-110) Liver Function Tests LFT Collection Date 05/24/18 LFT Collection Time 15:50 Urine Dip Collection Date 05/24/18 Collection Time 18:47 Specific [place] (1.002-1.030) 1.020 PH (5.0-7.5) 5.5 Leukocytes (Negative) Negative Protein (Negative) 2+ Glucose (Negative) Negative Ketones (Negative) Negative Urobilnogen (0.2-1.0 EU) 0.2 Bilirubin (Negative) Negative Blood (Negative) Negative Departure - Departure Disposition: Home, Routine, Self-Care Clinical Impression: Generalized abdominal pain, Dehydration, Alcohol abuse Vomiting Qualifiers: Vomiting type: unspecified Vomiting Intractability: non-intractable Nausea presence: with nausea Qualified Code(s): R11.2 - Nausea with vomiting, unspecified Condition: Good Instructions: Acute Nausea and Vomiting (ED), Acute Abdominal Pain (ED) Additional Instructions: Diagnosis: Abdominal pain 2. Vomiting 3. Alcohol abuse Plan: Decrease or stop your alcohol intake Drink plenty fluids Light diet to feel improved Phenergan suppositories if needed for nausea vomiting. Levsin and Tylenol if needed for abdominal pain Follow up with primary care physician Return emergency department for any significant worsening Referrals: Mari Pritchett MD [Primary Care Provider] - As per Instructions Prescriptions: Hyoscyamine Sulfate [Levsin, Hyomax-Sl 0.125 mg (*)] 0.125 - 0.25 mg SL Q6 PRN # 20 tab PRN Reason: abdominal cramping Promethazine HCl [Phenergan Rectal] 25 mg CA Q6 PRN #4 suppr PRN Reason: vomiting
[2018-05-24] MEDS ORDERED: IOPAMIDOL (ISOVUE-300) 100 ML BTL ONE (17:43)
[2018-05-24 19:31] VITALS: BP 162/80
== END 2018-05-24 19:12 | disposition home or self-care (01) ==
LOC: CED 15:14
DX: R10.84 Generalized abdominal pain (principal); R11.2 Nausea with vomiting, unspecified; F10.10 Alcohol abuse, uncomplicated; E86.9 Volume depletion, unspecified; Z87.891 Personal history of nicotine dependence
CPT/HCPCS: 74177; 96361; 96374; 96375; 99285; J1200; J1885; J2060; J2270; J2765; Q9967; 80048-PO; 80076-PO; 82150-PO

== ENCOUNTER 2018-06-23 09:08 | Emergency (ER) | payer OTHER, MEDICAID ==
[2018-06-23] MEDS ORDERED: HALOPERIDOL LACT 5 MG/ML INJ IVP ONE (09:27)
[2018-06-23] MEDS ORDERED: NS 1,000 ML IV ONE ×2 (09:27)
--- NOTE | 2018-06-23 09:33 | EDPHY ---
H & P Stated Complaint: Generalized abd pain x 1 day. Time Seen by Provider: 06/23/18 09:18 HPI/ROS: Chief Complaint: Abdominal pain, nausea, vomiting HPI: 58-year-old male well known to this emergency department with a history of chronic abdominal pain, HIV, pancreatitis in the past. Patient states that he drank a 12 pack of beer 2 days ago. Yesterday developed abdominal pain nausea vomiting with his typical symptoms. He is also continuing to use cannabis regularly. No coffee grounds or blood in his vomit. No dark tarry stools or blood in his stool. No fevers or chills. He did sees kidney doctor this morning who told him that his kidney function is excellent but urged him to come to the emergency department for hydration and further treatment. Pain is about an 8/10. There are no aggravating or alleviating factors. He says it feels exactly laces prior episodes in the past. Last episode was about a month ago. At that time and a CT scan of his abdomen which was completely normal. On every presentation he presents with a leukocytosis which improves with hydration. He has been compliant with his regular medications. ROS: 10 systems were reviewed and were negative except those elements noted in the HPI. PMH: HIV, pancreatitis, chronic alcohol abuse, cyclic vomiting syndrome, Social History: No smoking, daily heavy alcohol, regular marijuana use Family History: non-contributory Physical Exam: Gen: Awake, Alert, No Distress HEENT: Nose: no rhinorrhea Eyes: PERRLA, EOMI Mouth: Moist mucosa Neck: Supple, no JVD Chest: nontender, lungs clear to auscultation Heart: S1, S2 normal, no murmur Abd: Soft, non-tender, no guarding Back: no CVA tenderness, no midline tenderness Ext: no edema, non-tender Skin: no rash Neuro: CN II-XII intact, Sensation grossly intact, Strength 5/5 in bilateral upper and lower extremities - Personal History Current Tetanus Diphtheria and Acellular Pertussis (TDAP): Yes Tetanus Vaccine Date: WITHIN 10 YRS - Medical/Surgical History Hx Asthma: No Hx Chronic Respiratory Disease: No Hx Diabetes: No Hx Cardiac Disease: Yes Hx Renal Disease: No Hx Cirrhosis: No Hx Alcoholism: Yes Hx HIV/AIDS: Yes Hx Splenectomy or Spleen Trauma: No Other PMH: Chronic abdominal pain, HIV, Hep c+, htn, current alcoholic. psh- cholecystectomy - Social History Smoking Status: Former smoker Constitutional: Initial Vital Signs Temperature (C) 37 C 06/23/18 09:16 Heart Rate 133 H 06/23/18 09:16 Respiratory Rate 18 06/23/18 09:16 Blood Pressure 158/108 H 06/23/18 09:16 O2 Sat (%) 93 06/23/18 09:16 O2 Delivery Mode Room Air Allergies/Adverse Reactions: No Known Allergies Allergy (Verified 06/23/18 09:16) Home Medications: Medication Instructions Recorded Citalopram Hydrobromide [Celexa] 05/27/14 Emtricitabine/Tenofovir [Truvada 05/27/14 200MG/300MG (*)] Mirtazapine [Remeron] 05/27/14 Darunavir Ethanolate [Prezista] 01/06/16 Ritonavir [Norvir] 01/06/16 Atorvastatin Calcium [Lipitor 20 08/06/17 mg (*)] Lisinopril [Zestril 10 mg (*)] 08/06/17 Pantoprazole Sodium [Protonix 40mg 08/06/17 (*)] Hyoscyamine Sulfate [Levsin, 06/23/18 Hyomax-Sl 0.125 mg (*)] Promethazine HCl [Phenergan 06/23/18 Rectal] clonazePAM [klonoPIN (*)] 06/23/18 Medical Decision Making ED Course/Re-evaluation: Symptoms are improved after Haldol fentanyl and IV fluids. Patient is tolerating p. O.. Abdomen is soft and benign. Symptoms consistent with prior exacerbations. I have counseled him on reducing his alcohol and cannabis consumption. Will refer him to follow up with primary care physician. No evidence of acute abdominal surgical or infectious process at this time. - Data Points Laboratory Results: 06/23/18 09:46 POC Sodium 143 mEq/L mEq/L (135-145) POC Potassium 4.5 mEq/L mEq/L (3.3-5.0) POC Chloride 108.0 mEq/L mEq/L (97-110) POC Total CO2 21 mEq/L L mEq/L (22-31) POC BUN 19 mg/dL mg/dL (7-23) POC Creatinine 1.3 mg/dL mg/dL (0.7-1.3) POC Glucose 130 mg/dL H mg/dL (70-100) POC Calcium 10.3 mg/dL mg/dL (8.5-10.4) POC Total Bilirubin 1.3 mg/dL mg/dL (0.1-1.4) POC AST 40 IU/L IU/L (17-59) POC ALT 39 IU/L IU/L (21-72) POC Alk Phosphatase 76 IU/L IU/L (38-126) POC Total Protein 7.9 g/dL g/dL (6.3-8.2) POC Albumin 4.7 g/dL g/dL (3.5-5.0) Medications Given: Discontinued Medications Fentanyl (Sublimaze) 50 mcg IVP EDNOW ONE Stop: 06/23/18 09:56 Last Admin: 06/23/18 10:00 Dose: 50 mcg Haloperidol Lactate (Haldol Injection) 2.5 mg IVP EDNOW ONE Stop: 06/23/18 09:28 Last Admin: 06/23/18 09:44 Dose: 2.5 mg Sodium Chloride (Ns) 1,000 mls @ 0 mls/hr IV ONCE ONE; Wide Open PRN Reason: Protocol Stop: 06/23/18 09:28 Last Admin: 06/23/18 09:43 Dose: 1,000 mls Sodium Chloride (Ns) 1,000 mls @ 0 mls/hr IV ONCE ONE; Wide Open PRN Reason: Protocol Stop: 06/23/18 09:28 Last Admin: 06/23/18 10:28 Dose: 1,000 mls Point of Care Test Results: Chemistry 06/23/18 09:46 POC Sodium 143 mEq/L mEq/L (135-145) POC Potassium 4.5 mEq/L mEq/L (3.3-5.0) POC Chloride 108.0 mEq/L mEq/L (97-110) POC Total CO2 21 mEq/L L mEq/L (22-31) POC BUN 19 mg/dL mg/dL (7-23) POC Creatinine 1.3 mg/dL mg/dL (0.7-1.3) POC Glucose 130 mg/dL H mg/dL (70-100) POC Calcium 10.3 mg/dL mg/dL (8.5-10.4) POC Total Bilirubin 1.3 mg/dL mg/dL (0.1-1.4) POC AST 40 IU/L IU/L (17-59) POC ALT 39 IU/L IU/L (21-72) POC Alk Phosphatase 76 IU/L IU/L (38-126) POC Total Protein 7.9 g/dL g/dL (6.3-8.2) POC Albumin 4.7 g/dL g/dL (3.5-5.0) Departure - Departure Disposition: Home, Routine, Self-Care Clinical Impression: Abdominal pain Condition: Good Instructions: Abdominal Pain (ED), Chronic Abdominal Pain (ED) Additional Instructions: Please try to reduce your alcohol and cannabis use. Follow up with primary care physician in 2-3 days for further evaluation. Return to the emergency department for uncontrolled abdominal pain, uncontrolled nausea vomiting, fevers, or any other concerns. Referrals: Etienne Yang MD [Primary Care Provider] - As per Instructions
[2018-06-23] MEDS ORDERED: fentaNYL 100 MCG/2 ML INJ IVP ONE (09:55)
[2018-06-23 11:27] VITALS: BP 115/73
== END 2018-06-23 11:26 | disposition home or self-care (01) ==
LOC: CED 09:08
DX: R10.9 Unspecified abdominal pain (principal); F12.90 Cannabis use, unspecified, uncomplicated; Z72.89 Other problems related to lifestyle; E86.9 Volume depletion, unspecified
CPT/HCPCS: 96361; 96374; 96375; 99284; J1630; J3010; 80053-PO

== ENCOUNTER 2018-09-21 17:29 | Emergency (ER) | payer OTHER, MEDICAID ==
[2018-09-21] MEDS ORDERED: IBUPROFEN 200 MG TAB PO ONE (18:19)
[2018-09-21] MEDS: IPRATROPIUM/ALBUTEROL 3 ML DEYVIAL IH ONE ×2 (19:00→19:33)
--- NOTE | 2018-09-21 20:06 | EDPHY ---
H & P Time Seen by Provider: 09/21/18 17:52 HPI/ROS: HPI Fever, cough, congestion. 58-year-old male by private vehicle. This patient reports that he has had a fever, cough and nasal congestion since this morning. Her describes his cough as dry and nonproductive. He also describes having some mild muscle aches and joint aches. He reports that he has had a chronic cough for many months. ROS: Constitutional: As above, no chills. No weakness. Eyes: No discharge. No changes in vision. ENT: No sore throat. As above. Respiratory: As above. No shortness of breath. Cardiac: No chest pain, no palpitations. Gastrointestinal: No abdominal pain, no vomiting, no diarrhea. Genitourinary: No hematuria. No dysuria or increased frequency with urination. Musculoskeletal: No back pain. No neck pain. As above. Skin: No rashes. Neurological: No headache. No focal weakness or altered sensation. Past medical history: Chronic abdominal pain, HIV, hep C positive, hypertension , alcohol abuse, cholecystectomy. Social history: Alcohol abuse. Nonsmoker. Here by himself. Physical Exam: General Appearance: Alert, he is not in distress, intermittent dry cough. This patient is responding to questions appropriately and in full sentences. This patient appears well-hydrated and well-nourished. Eyes: Pupils equal and round no pallor or injection. No lid edema, erythema or injection. ENT, Mouth: Mucous membranes are moist. The pharyngeal tissues are unremarkable. No edema or swelling. No asymmetry suggestive of abscess. No erythema or exudates. No cervical, submandibular, submental lymphadenopathy. No stridor on auscultation of his neck. Respiratory: There are no retractions, he has diffuse wheezing on exhalation in the mid and upper lung yuan bilaterally. No tachypnea. Cardiovascular: Regular rate and rhythm. No murmur appreciated. Neurological: Motor sensory function is grossly intact. Cranial nerves are normal. Gait is normal. Skin: Warm and dry, no rashes. Musculoskeletal: Neck is supple and nontender. No pain on flexion of his neck. Extremities are symmetrical. All joints range without pain or impingement. Psychiatric: No agitation. No depression. Database: Influenza: Negative. EKG: Imaging: Chest x-ray PA and lateral; the cardiac mediastinal silhouette is unremarkable. No evidence of infiltrate or pneumothorax. Findings consistent with mild bronchitis. No other acute cardiopulmonary disease process noted. Interpreted by me. Procedures: Emergency department course: Triage vital signs reviewed. After my initial evaluation a chest x-ray was obtained. He was given 2 albuterol/Atrovent nebulizer treatments back to back. 8:00 p.m., the patient was re-evaluated, resting comfortably at this time. He states that he feels much better after nebulizer treatments. He is moving better air. Pulse oximetry on room air in the mid 90s. No tachypnea. Results of his influenza assay and chest x-ray were discussed with him. He feels comfortable going home and I feel he is safe for discharge. I will send him home with a albuterol MDI. I have discussed [id number] cough and decongestant medications. I will also prescribe him Tesshabbiron Perle. He has been instructed follow up with his primary care physician on Tuesday for re- evaluation. Return to emergency department precautions were thoroughly reviewed with him. All of his questions were answered. He was discharged from the emergency department in good condition. Differential Diagnosis: The differential diagnosis on this patient includes but is not limited to bronchitis, upper respiratory infection. Pneumonia, serious bacterial infection unlikely. This represents a partial list of diagnoses considered. These considerations are based on history, physical exam, past history, reassessment and diagnostic testing. Smoking Status: Former smoker Constitutional: Initial Vital Signs Temperature (C) 37.2 C 09/21/18 17:44 Heart Rate 102 H 09/21/18 17:44 Respiratory Rate 16 09/21/18 17:44 Blood Pressure 118/94 H 09/21/18 17:44 O2 Sat (%) 92 09/21/18 17:44 O2 Delivery Mode Room Air Allergies/Adverse Reactions: No Known Allergies Allergy (Verified 09/21/18 18:16) Home Medications: Medication Instructions Recorded Citalopram Hydrobromide [Celexa] 05/27/14 Emtricitabine/Tenofovir [Truvada 05/27/14 200MG/300MG (*)] Mirtazapine [Remeron] 05/27/14 Darunavir Ethanolate [Prezista] 01/06/16 Ritonavir [Norvir] 01/06/16 Atorvastatin Calcium [Lipitor 20 08/06/17 mg (*)] Lisinopril [Zestril 10 mg (*)] 08/06/17 Pantoprazole Sodium [Protonix 40mg 08/06/17 (*)] Promethazine HCl [Phenergan 06/23/18 Rectal] clonazePAM [klonoPIN (*)] 06/23/18 Benzonatate [Tessalon Pearles] 100 mg PO TID #12 cap 09/21/18 Medical Decision Making - Data Points Medications Given: Discontinued Medications Albuterol/Ipratropium (Duoneb) 6 ml IH EDNOW ONE Stop: 09/21/18 18:53 Last Admin: 09/21/18 19:33 Dose: 6 ml Ibuprofen (Motrin) 600 mg PO EDNOW ONE Stop: 09/21/18 18:20 Last Admin: 09/21/18 18:37 Dose: 600 mg Point of Care Test Results: Influenza PCR Flu Nasal Swab Collection Date 09/21/18 Flu Nasal Swab Collection Date 09/21/18 Flu Nasal Swab Collection Time 18:21 Flu Nasal Swab Collection Time 18:30 Influenza A Result Not Detected Influenza A Result Not Detected Influenza B Result Not Detected Influenza B Result Not Detected Departure - Departure Disposition: Home, Routine, Self-Care Clinical Impression: Acute bronchitis Condition: Good Instructions: Acute Bronchitis (ED) Additional Instructions: Read and follow provided instructions. Follow-up with your primary care physician tomorrow if possible if not on Tuesday for re-evaluation as discussed. Ibuprofen dosin mg every 6 hours with meals for the next 3 days only. Take only as needed for muscle aches, joint aches and fever. Albuterol meter dose inhaler: 1-2 puffs every 2-4 hours as needed for cough and shortness of breath. Return to the emergency department immediately for worsening symptoms worsening cough, high fever, difficulty breathing or other serious concerns. Referrals: Etienne Yang MD [Primary Care Provider] - As per Instructions Prescriptions: Benzonatate [Tessalon Pearles] 100 mg PO TID #12 cap
[2018-09-21] MEDS ORDERED: ALBUTEROL INH PREPACK MDI TAKEHOME ONE (20:08)
[2018-09-21 20:31] VITALS: BP 167/85
== END 2018-09-21 20:30 | disposition home or self-care (01) ==
LOC: CED 17:29
DX: J20.9 Acute bronchitis, unspecified (principal)
CPT/HCPCS: 71046-PO; 99284-ER